=== PATIENT | female | born 1965 | race Caucasian/White ===

== ENCOUNTER 2020-08-18 11:54 | Outpatient (REF) | payer OTHER, SELFPAY | END 2020-08-18 11:55 | disposition home or self-care (01) | LOC: HO.SCI 11:54 | PROVIDERS: Visit Provider Internal Medicine | DX: Z13.89 Encounter for screening for other disorder (principal) ==

== ENCOUNTER 2020-08-20 14:44 | Outpatient (REF) | payer OTHER, SELFPAY ==
--- NOTE | ~2020-08-20 | MR_ITS ---
MRI OF THE BRAIN WITHOUT IV CONTRAST INDICATION: Gait disorder. COMPARISON: None available. TECHNIQUE: Multiplanar multisequence MR imaging of the brain was obtained without IV contrast. FINDINGS: There is no hydrocephalus, extra-axial surface collection, or herniation. No parenchymal signal abnormality. The major flow voids at the skull base are preserved. There is no acute infarct on diffusion-weighted imaging. There is no intracranial hemorrhage on the gradient recalled echo acquisition. The midline structures are normal. The cerebellar tonsils are normally positioned. The cerebellum and brainstem are normal. The craniocervical junction is normal. Osseous marrow signal intensity is homogenous. The visualized soft tissues are unremarkable. MR/MR head/brain wo con IMPRESSION: Unremarkable noncontrast MRI of the brain.
== END 2020-08-20 14:45 | disposition home or self-care (01) ==
LOC: HO.MRI 14:44
PROVIDERS: PCP Internal Medicine; Visit Provider Psychiatry & Neurology Neurology
DX: R26.89 Other abnormalities of gait and mobility (principal)
CPT/HCPCS: 70551

== ENCOUNTER 2021-12-30 13:33 | Outpatient (REF) | payer OTHER, SELFPAY ==
--- NOTE | ~2021-12-30 | MR_ITS ---
MR CERVICAL SPINE WITHOUT IV CONTRAST CLINICAL INFORMATION: Cervical spondylosis. COMPARISON: Cervical spine MRI 05/12/2020. TECHNIQUE: MRI of the cervical spine was obtained using routine sequences without contrast. FINDINGS: Mild anterior subluxation of C4 on C5. Leftward convex scoliotic curvature of the thoracic spine partially imaged. There is no bone marrow edema. There are no acute fractures. The craniocervical junction is unremarkable. The vertebral body heights are preserved. There is moderate disc volume loss at C5-C6 and mild disc volume loss at C6-C7. Partially imaged intracranial compartment is unremarkable. Cervical arterial flow voids are maintained. No significant extra spinal soft tissue findings. No definite cord signal changes accounting for artifact. C2-C3: Left-sided uncovertebral joint spurring and advanced facet arthropathy result in similar moderate left-sided bony foraminal stenosis. Disc osteophyte without central canal stenosis. Findings unchanged. C3-C4: Disc osteophyte and ligamentum flavum thickening mildly narrow the central canal. Advanced uncovertebral joint hypertrophy and hypertrophic facet arthropathy result in stable appearing moderate to severe bilateral foraminal stenosis. Findings unchanged. C4-C5: Disc osteophyte mildly narrows the central canal. Left-sided advanced uncovertebral joint hypertrophy and hypertrophic facet arthropathy result in severe left-sided foraminal stenosis. No central canal and no right foraminal stenosis. Findings unchanged. C5-C6: Disc osteophyte eccentric to the left side results in mild to moderate central canal stenosis and significant effacement of the left axillary recess is unchanged. Advanced uncovertebral joint hypertrophy and hypertrophic facet arthropathy result in stable severe bilateral foraminal stenosis. C6-C7: Uncovertebral joint spurring and advanced facet arthropathy result in severe bilateral foraminal stenosis. Findings are unchanged. C7-T1: Posterior disc contour is normal. No central canal stenosis and no foraminal stenosis. MR/MR cervical spine wo con IMPRESSION: Advanced multilevel cervical spondylosis. Advanced spondylitic changes result in stable varying degrees of moderate to severe foraminal stenosis throughout the cervical spine as described. At C5-C6, disc osteophyte eccentric to the left results in similar effacement of left axillary recess and mild to moderate central canal stenosis with mild flattening of the cervical cord.
== END 2021-12-30 13:34 | disposition home or self-care (01) ==
LOC: HO.MRI 13:33
PROVIDERS: Visit Provider Psychiatry & Neurology Neurology
DX: M47.812 Spondylosis without myelopathy or radiculopathy, cervical region (principal)
CPT/HCPCS: 72141

== ENCOUNTER 2024-03-20 12:15 | Outpatient (REF) | payer OTHER, SELFPAY ==
--- NOTE | ~2024-03-20 | XR_ITS ---
EXAMINATION: XR ANKLE 3 OR MORE VIEWS LEFT HISTORY: LEFT ANKLE PAIN COMPARISON: There are no prior studies available for comparison. FINDINGS: Three views of the left ankle are submitted. Osseous mineralization is normal. There is no acute fracture or dislocation. The joint spaces are preserved. Tiny densities adjacent to the tip of the medial malleolus may be the result of old trauma. XR/XR ankle LT min 3V IMPRESSION: No evidence of acute fracture of the left ankle. Electronically signed by: Sushil Catalan MD 03/21/2024 07:57 AM EST
--- OUTSIDE RECORDS SUMMARY | 2024-03-20 14:35 | XMS_ITS | Encounter Summary ---
Author Organization [facility] Address [id number] [place] [id number] Care Team Providers Care Director Of Individual Giving Name Role Phone Waylon Morataya MD Primary Care Provider [phone] Reason for Referral * Consultation (Routine) - Pending Review Specialty Diagnoses / Procedures Referred By Contlisa t Referred To Contact Nutrition Diagnoses Hyperlipidemia, unspecified hyperlipidemia type Waylon Morataya MD [address] [place] [id number] Referral ID Status Reason Start Date Expiration Date Visits Requested Visits Authorized [id number] Pending Review Specialty Services Required 03/06/2024 03/06/2025 1 1 Reason for Visit * Reason Onset Date Comments Results 03/05/2024 Encounter Details Date Type Department Care Team (Late st Contact Info) Description 03/05/2024 Telephone Internal Medicine - [address] [phone] Waylon Morataya MD [address] [place] [id number] Results Social History Tobacco Use Types Packs/Day Years Used Date Smoking Tobacco: Never Smokeless Tobacco: Never Alcohol Use Standard Drinks/Week Comments Yes 0 (1 standard drink = 0.6 oz pur e alcohol) Sex and Gender Information Value Date Recorded Sex Assigned at Not on file Gender Identity Not on file Sexual Orientation Not on file Job Start Date Occupation Industry Not on file Not on file Not on file documented as of this encounter Progress Notes * Katherine Sanchez MA - 03/07/2024 1:11 PM EST Message sent to patient. * Waylon Morataya MD - 03/06/2024 7:29 PM EST Referral to manager fashion placed. * Radha Conde MA - 03/06/2024 2:[address] Jo Ann Bello I spoke with Ms. Ventura patient is requesting a refer to manager fashion to help her with cholesterol diet . Please advise thanks [facility] * Kamaljit Monroy - 03/06/2024 1:12 PM EST Pt stated she would like a callback to verify means to follow a low -cholesterol diet. Message was given to pt stated by Dr. Cherry and she still has some unanswered questions . Please callback @ [phone]. Thx * Waylon Morataya MD - 03/05/2024 7:34 PM EST Please inform the patient that her fatty liver test came back reassuring. It showed no significant fatty liver or thickening of her liver. It did show that her cholesterol levels are elevated and sheneeds to follow low-cholesterol diet. * Katherine Diaz MA - 03/05/2024 2:10 PM EST Unsure how to interpret results. Please advise. * Ra Olson - 03/05/2024 12:51 PM EST Pt wants to speak to guy about her test results 02/27/24 about the liver and cholesterol. Tel #:[phone]. documented in this encounter Plan of Treatment Upcoming Encounters Date Type Department Care Team (Late st Contact Info) Description 03/26/2024 1:30 PM EST Consult General Surgery - [place] [address] [address] César Atkinson MD [address] [address] 07/25/2024 3:50 PM EDT Appointment Radiology Department [address] [phone] Scheduled Referrals Name Type Priority Associated Diagnoses Orde r Schedule Ambulatory referral to Nutrition Services Outpatient Referral Routine Hyperlipidemia, unspecified hyperlipidemia type 1 Occurrences starting 03/06/2024 until 03/06/2025 documented as of this encounter Visit Diagnoses Diagnosis Hyperlipidemia, unspecified hyperlipidemia type- Primary Encounter for screening mammogram for breast cancer documented in this encounter Care Teams Director Of Individual Giving Relationship Specialty Start Date End Date Waylon Morataya MD [address] [place] [id number] PCP - General Internal Medicine 01/23/19 documented as of this encounter
--- OUTSIDE RECORDS SUMMARY | 2024-03-20 14:35 | XMS_ITS | Clinical Summary ---
Author Organization 175 [facility] Address [address] [place] [address] Phone Care Team Providers Care Ems Instructor Name Role Phone Waylon Morataya MD Primary Care Provider [phone] Allergies No known active allergies Medications Medication Sig Dispensed Refills Start Date End Date Status omeprazole (PriLOSEC) [address] capsule Take 1 capsule (40 mg total) by mouth 1 (one) time each day. 08/29/2023 Active clotrimazole (MYCELEX) 10 mg vito Take 1 Vito by mouth 5 times daily for 14 days. Allow vito to remain in mouth and dissolve slowly on the tongue. 08/02/2023 Active DULoxetine (Drizalma Sprinkle) 20 mg capsule, delayed rel sprinkle Take 20 mg by mouth 2 times daily. Active gabapentin (NEURONTIN) 300 mg capsule Take 1 capsule (300 mg total) by mouth 1 (one) time each day. 05/18/2023 Active cyclobenzaprine (FLEXERIL) 5 mg tablet Take 1 tablet (5 mg total) by mouth 3 (three) times a day if needed. 04/26/2023 Active reservoir inhalation (INSPIREASE) device 1 Each by Does not apply route as needed for Other (To use with inhalers). 06/22/2022 Active albuterol HFA (PROAIR HFA ; PROVENTIL HFA ; VENTOLIN HFA) 90 mcg/actuation inhaler Inhale 2 Puffs into the lungs every 4 hours as needed for Cough or Wheezing. 06/22/2022 Active FLUoxetine (PROzac) 20 mg capsule 2 capsules daily. 03/10/2020 Active QUEtiapine (SEROquel) 25 mg tablet 1 tablet BID 03/10/2020 Active clonazePAM (KlonoPIN) 0.5 mg tablet Take 1 Tab by mouth 2 times daily. 03/10/2020 Active multivit-min/iron/ folic acid/K (ADULTS MULTIVITAMIN ORAL) Take 1 Tab by mouth daily. Active ondansetron (ZOFRAN) 4 mg tablet Take 1 tablet (4 mg total) by mouth every 8 (eight) hours if needed for nausea or vomiting. 20 tablet 1 01/16/2024 Active pravastatin (PRAVACHOL) 40 mg tablet TAKE 1 TABLET BY MOUTH EVERY DAY 90 tablet 02/22/2024 Active senna 8.6 mg tablet TAKE 1 TABLET BY MOUTH EVERY DAY 90 tablet 02/28/2024 Active senna (SENOKOT) 8.6 mg tablet Take 1 tablet (8.6 mg total) by mouth 1 (one) time each day. 08/29/2023 5 Discontinued pravastatin (PRAVACHOL) 40 mg tablet Take 1 tablet (40 mg total) by mouth 1 (one) time each day. 08/28/2023 5 Discontinued Active Problems Problem Noted Date Diagnosed Date Cervical spondylosis with radiculopathy 02/19/20 22 Overview (11/27/2023): Last Assessment & Plan: Ms. Ventura has seen some improvements since her last visit here, particularly that her voice is getting better and a new technique employed at physical therapy is helping with the tightness at the back of her neck and shoulders. Unfortunately, she continues to describe neck pain with pain and tingling to her hands with this feeling of waiting for everything to wake up but it is not . She is frustrated and upset with herself that maybe she waited too long to have surgery. We discussed that it has been less than 4 months since her surgery and improvements particularly in paresthesias can take up to a year. She continues to drop things out of her left hand and has profound headaches as she has stayed off of NSAIDs since the fusion. He had a follow-up visit with Dr. Robles last week and is scheduled for an EMG/NCV a week from today. On exam, her voice is of normal volume, her incision is well-healed, cervical rotation is 45 degrees bilaterally, strength is 5/5, gait is steady, there were no myelopathic findings. I agree that she can resume taking ibuprofen 800 mg for her headaches and that she should continue with physical therapy. We will await the results of her EMG/NCV and if necessary, we can order repeat cervical spine MRI based on those results. Allergic rhinitis 10/30/2017 Asthma 08/02/2017 Bunion 08/02/2017 Depression with anxiety 08/02/2017 GERD (gastroesophageal reflux disease) 8 Hyperlipidemia 08/02/2017 Bleeding external hemorrhoids 06/06/2017 Frequent headaches 01/24/2017 Vertigo 01/24/2017 Eczema 08/01/2016 IBS (irritable bowel syndrome) 07/22/2015 Encounters Date Type Department Care Team Description 03/12/2024 Telephone [facility] [address] [place] [id number] [facility] (Patient referred by Adyen for [facility]) 03/05/2024 Telephone Internal Medicine - [address] [phone] Waylon Morataya MD Results 01/16/2024 4:30 PM EST Telemedicine Internal Medicine - [address] [phone] Waylon Morataya MD Fatty liver (Primary Dx); Chronic LUQ pain 01/05/2024 12:30 PM EST Office Visit Gastroenterology - [facility] [address] [facility] [address] [place] [phone] Honey Hart MD LUQ pain (Primary Dx) 12/25/2023 10:32 AM EST - 12/25/2023 11:59 PM EST Hospital Encounter Radiology Department - [address] [phone] Hepatomegaly, not elsewhere classified Discharge Disposition: Home or Self Care from Last 3 Months Immunizations Name Administration Dates Next Due Influenza Quadravalent, MDCK , 0.5ml, preservative free (Flucelvax) 6mo and older 11/19/2019 Influenza trivalent, with pr eservative (Fluzone; Afluria) 6mo and older 11/26/2018 Influenza, Unspecified 12/01/2020 Moderna SARS-CoV-2 COVID-19, mRNA, LNP-S, preservative free 01/29/2021,06/28/2020 Pneumococcal polysaccharide 23 valent (Pneumovax 23) 2yo and older 01/28/2016 Td Tetanus diptheria (Tdvax) 7yo and older 10/06 Zoster recombinant (Shingrix) 19yo and older ,02/28/2018 Surgical History Surgery Date Site/Laterality Comments APPENDECTOMY PROCEDURE: HISTORICAL APPENDECTOMY TONSILLECTOMY PROCEDURE: HISTORICAL TONSILLECTOMY OTHER SURGICAL HISTORY PROCEDURE: HISTORY OTHER; COMMENT: hernia repair inguinal left OTHER SURGICAL HISTORY PROCEDURE: ---- OTHER ----; COMMENT: Laproscopic surgery APPENDECTOMY PROCEDURE: [place] APPENDECTOMY COLONOSCOPY PROCEDURE: HISTORICAL COLONOSCOPY CERVICAL BIOPSY W/ LOOP ELECTRODE EXCISION PROCEDURE: [place] CONIZATION CERVIX W/WO D&C RPR ELTRD EXC; COMMENT: Cryosurgery at age 36 NECK SURGERY 11/10/2022 PROCEDURE: HISTORICAL NECK SURGERY; COMMENT: C5-6, C6-7 ACDF with plating, Dr. Wray Medical History Medical History Date Comments Allergic rhinitis 10/30/2017 DX:Allergic rh initis Asthma 08/02/2017 DX:Asthma Depression with anxiety 08/02/2017 DX:Depre ssion with anxiety Bunion 08/02/2017 DX:Bunion Eczema 08/01/2016 DX:Eczema GERD (gastroesophageal reflux disease) 8 DX:GERD (gastroesophageal reflux disease) Hyperlipidemia 08/02/2017 DX:Hyperlipidemi a IBS (irritable bowel syndrome) 07/22/2015 D X:IBS (irritable bowel syndrome) Frequent headaches 01/24/2017 DX:Frequent h eadaches Vertigo 01/24/2017 DX:Vertigo Bleeding external hemorrhoids 06/06/2017 DX :Bleeding external hemorrhoids History of endometriosis 03/07/2019 DX:Hist ory of endometriosis Family History Medical History Relation Name Comments Ovarian cancer Aunt Other: hydrocephalus Brother 1 No Known Problems Brother 2 Other cancer Father skin Coronary artery disease Maternal Grandfather Coronary artery disease Maternal Grandmother Diabetes Mother cad Esophageal cancer Paternal Grandfather No Known Problems Sister Relation Name Status Comments Aunt Alive Brother 1 Alive Brother 2 Alive Father Alive Maternal Grandfather Maternal Grandmother Mother Alive Paternal Grandfather Paternal Grandmother Sister Alive Social History Tobacco Use Types Packs/Day Years Used Date Smoking Tobacco: Never Smokeless Tobacco: Never Alcohol Use Standard Drinks/Week Comments Yes 0 (1 standard drink = 0.6 oz pur e alcohol) Housing Instability Answer Date Recorde d Are you worried that in the next 2 months you may not have stable housing? No 03/12/2024 Food Access & Nutrition Answer Date Rec orded Do you have access to a vari ety of food including fruits and vegetables? Yes 03/12/2024 Access to Healthcare Answer Date Record ed Within the last 3 months, ho w many times did you visit the emergency department for your medical care? 0 03/12/2024 Health Literacy Answer Date Recorded How often do you need to hav e someone help you when you read instructions, pamphlets, or other written material from your doctor or pharmacy? Never 03/12/2024 Caregiver: How often do you need to have someone help you when you read instructions, pamphlets, or other written material from your doctor or pharmacy? Not on file 03/12/2024 Financial Risk Answer Date Recorded How hard is it for you to pa y for the very basics like food, housing, medical care, and air conditioning / heating? Very hard 03/12/2024 Transportation Answer Date Recorded Has the lack of transportati on kept you from meetings, work, or from getting things needed for daily living? No Has the lack of transportati on kept you from medical appointments or from getting medications? No 03/12/2024 Social Isolation Answer Date Recorded How often do you feel lonely or isolated from those around you? Sometimes 03/12/2024 Food Risk Answer Date Recorded Within the past 12 months we worried whether our food would run out before we got money to buy more. Sometimes true 025 Within the past 12 months th e food we bought just didn't last and we didn't have money to get more. Sometimes true 03/12/2024 Dependent Care Answer Date Recorded Do you need help finding or paying for care for your loved ones. For example, children's tutor nursery or elderly care for an older adult? No 03/12/2024 Education Answer Date Recorded Do you think completing more education or training, like finishing a GED, going to college, or learning a trade, would be helpful for you? No 03/12/2024 Employment and Income Answer Date Recor ded During the last four weeks, have you been actively looking for work? No 03/12/2024 Living Situation Answer Date Recorded What is your living situation? 0 03/12/2024 Sex and Gender Information Value Date Recorded Sex Assigned at Not on file Gender Identity Not on file Sexual Orientation Not on file Job Start Date Occupation Industry Not on file Not on file Not on file Obstetrics History Last Filed Vital Signs Vital Sign Reading Time Taken Comments Blood Pressure 115/80 01/05/2024 12:46 PM EST Pulse 89 01/05/2024 12:46 PM EST Temperature - - Respiratory Rate - - Oxygen Saturation 98% 01/05/2024 12:46 PM EST Inhaled Oxygen Concentration - - Weight 75.8 kg (167 lb) 01/05/2024 12:46 PM EST Height 162.6 cm (5' 4 ) 01/05/2024 12:46 PM EST Body Mass Index 28.67 01/05/2024 12:46 PM EST Plan of Treatment Upcoming Encounters Date Type Department Care Team (Late st Contact Info) Description 03/26/2024 1:30 PM EST Consult General Surgery - [facility] [address] [phone] César Atkinson MD [address] [phone] 07/25/2024 3:50 PM EDT Appointment Radiology Department - [address] [phone] Health Maintenance Due Date Last Done Comments Pneumococcal Vaccine: Pediatrics (0 to 5 Years) and At-Risk Patients (6 to 64 Years) (2 of 2 - PCV) 01/27/2017 01/28/2016 HIV Screening 01/29/2022 COVID-19 Vaccine ( season) 2023 09/12/2021, 01/29/2021, 06/28/2020, Additional history exists RSV Immunization Patients 60+ Years Old (1 - Risk 60-74 years 1-dose series) 2023 Depression Screening 08/27/2024 08/28/2023 Social Influencers of Health Screening 03/12/2025 03/12/2024 Breast Cancer Screening 07/11/2025 07/12/19 24, 07/12/2023, 07/07/2022 Cervical Cancer Screening: HPV 01/18/2027 01/18/2022 Cholesterol Screening (Lipid Panel) 11/08/2028 11/09/2023, 11/09/2023, 08/28/2023 DTaP,Tdap,and Td Vaccines (2 - Td or Tdap) 10/06/2032 10/06/2022 Colorectal Cancer Screening: Colonoscopy 10/27/2032 10/27/2022 Zoster Vaccines Completed 08/19/2018, 02/28/2018 Hepatitis C Screening Completed 03/09/2019 Influenza Vaccine Completed 01/02/2024, , 12/03/2021, Additional history exists HIB Vaccines Aged Out No longer eligi ble based on patient's age to complete this topic HPV Vaccines Aged Out No longer eligi ble based on patient's age to complete this topic Hepatitis A Vaccines Aged Out No long er eligible based on patient's age to complete this topic Hepatitis B Vaccines Aged Out No long er eligible based on patient's age to complete this topic IPV Vaccines Aged Out No longer eligi ble based on patient's age to complete this topic MMR Vaccines Aged Out No longer eligi ble based on patient's age to complete this topic Meningococcal ACWY Vaccine Aged Out N o longer eligible based on patient's age to complete this topic RSV Immunization Patients Under 20 months Aged Out No longer eligible based on patient's age to complete this topic Varicella Vaccines Aged Out No longer eligible based on patient's age to complete this topic Procedures Procedure Name Priority Date/Time Associated Diagnosis Comments SPARROW FIBROSURE Routine 02/27/2024 2:24 PM EST Fatty liver MR ABDOMEN WO AND W CONTRAST Routine 12/25/2023 12:11 PM EST Hepatomegaly, not elsewhere classified SONO ABDOMEN COMPLETE Routine 12/21/2023 8:21 AM EDT Constipation, unspecified CT ABD \T\ PELVIS W/CONTRAST Routine 12/19/2023 3:01 PM EDT Constipation, unspecified LIPID PANEL Routine 11/09/2023 DEPRESSION SCREENING Routine 08/28/2023 SCREENING MAMMOGRAPHY BI 2-VIEW BREAST INC CAD Routine 07/12/2023 5:13 PM EDT Encounter for screening mammogram for malignant neoplasm of breast COLONOSCOPY Routine 10/27/2022 HPV Routine 01/18/2022 HEPATITIS C SCREENING Routine 03/09/2019 from Last 3 Months or Most Recently Relevant to Health Maintenance Results * SPARROW fibrotest liver diease (02/27/2024 2:24 PM EST) SPARROW FibroSure See Below 03/05/2024 9:34 AM EST [facility] Comment: SPARROW FibroSure(R) Plus SEE REPORT UNDER SEPARATE COVER. REPORT WILL BE SENT TO THE ORDERING LABORATORY VIA PRINTER OR FAX. ADDITIONAL COPIES OF THE ORIGINAL REPORT MAY ALSO BE OBTAINED BY CALLING [facility] at [phone] Blood Venous blood specimen / Unknown Venipuncture / Unknown 02/27/2024 2:24 PM EST 02/27/2024 2:24 PM EST Waylon Morataya MD LAB BLOOD [facility] [address] [place] [address] * MR Abdomen wo and w Contrast (12/25/2023 12:11 PM EST) Anatomical Region Laterality Modality Body Magnetic Resonan ce 12/25/2023 5:57 PM EST Impressions 12/25/2023 6:23 PM EST 1. ??No acute findings. 2. ??Findings of hepatic steatosis. ??Area in the left hepatic lobe with signal characteristics suggestive of less fatty infiltration than in the remainder liver parenchyma appears to correlate with the ultrasound finding. ??No suspicious hepatic lesions seen. -------- FINAL REPORT -------- Dictated By: Eb Nevarez Dictated Date: 12/25/2023 17:57 ET Assigned Physician: Eb Nevarez Reviewed and Electronically Signed By: Eb Nevarez Signed Date: 12/25/2023 18:23 ET Workstation ID: [id number] Transcribed By: Self Edit Transcribed Date: 12/25/2023 17:57 ET Narrative 12/25/2023 6:23 PM EST MRI of abdomen without and with intravenous contrast TECHNIQUE: Multisequence MRI of the abdomen was obtained prior to and following intravenous administration of 15 cc of contrast gadolinium Dotarem. ??2-D and 3- D MRCP sequences were also obtained. Comparison: Ultrasound of the abdomen in on December 21, 2023 describes a 4.8 x 2.3 x 2.6 cm hypoechoic mass of the left lobe of the liver versus focal fat sparing. ??CT of abdomen/pelvis on December 19, 2023. History: Left upper quadrant abdominal pain. FINDINGS: Motion artifacts degrades many sequences. Lower Chest: No pleural effusions. Liver: Signal loss on [id number] phase sequence consistent with fatty liver, with a geographic area of relatively less signal loss in the central aspect of the segment II/III that measures about 4.1 cm long (701:20), which likely correlates with the location seen on the recent ultrasound study. ??Nonenhancing T2 hyperintense small hepatic cysts. ??No arterially enhancing suspicious hepatic lesions seen. Biliary: Normal gallbladder. ??No biliary ductal dilatation. Spleen: No splenomegaly or focal lesion. Pancreas: No focal lesion. ??No ductal dilatation. ??No evidence of pancreas divisum. Adrenal Glands: No nodules Kidneys/Ureters: No solid-appearing focal renal lesions or hydronephrosis. ??Tiny upper pole right renal cyst. Bowel: No bowel distention. Peritoneum/Retroperitoneum: No free fluid. Lymph Nodes: No lymphadenopathy. Vessels: No abdominal aortic aneurysm. Bones/Soft Tissues: Unremarkable. Procedure Note Eb Nevarez MD - 12/25/2023 MRI of abdomen without and with intravenous contrast TECHNIQUE: Multisequence MRI of the abdomen was obtained prior to andfollowing intravenous administration of 15 cc of contrast gadoliniumDotarem. 2-D and 3-D MRCP sequences were also obtained. Comparison: Ultrasound of the abdomen in on December 21, 2023 describes a4.8 x 2.3 x 2.6 cm hypoechoic mass of the left lobe of the liver versusfocal fat sparing. CT of abdomen/pelvis on December 19, 2023. History: Left upper quadrant abdominal pain. FINDINGS: Motion artifacts degrades many sequences. Lower Chest: No pleural effusions. Liver: Signal loss on [id number]-[id number] phase sequence consistent with fattyliver, with a geographic area of relatively less signal loss in thecentral aspect of the segment II/III that measures about 4.1 cm long(701:20), which likely correlates with the location seen on the recentultrasound study. Nonenhancing T2 hyperintense small hepatic cysts. Noarterially enhancing suspicious hepatic lesions seen. Biliary: Normal gallbladder. No biliary ductal dilatation. Spleen: No splenomegaly or focal lesion. Pancreas: No focal lesion. No ductal dilatation. No evidence of pancreasdivisum. Adrenal Glands: No nodules Kidneys/Ureters: No solid-appearing focal renal lesions or hydronephrosis.Tiny upper pole right renal cyst. Bowel: No bowel distention. Peritoneum/Retroperitoneum: No free fluid. Lymph Nodes: No lymphadenopathy. Vessels: No abdominal aortic aneurysm. Bones/Soft Tissues: Unremarkable. IMPRESSION: 1. No acute findings. 2. Findings of hepatic steatosis. Area in the left hepatic lobe withsignal characteristics suggestive of less fatty infiltration than in theremainder liver parenchyma appears to correlate with the ultrasoundfinding. No suspicious hepatic lesions seen. -------- FINAL REPORT -------- Dictated By: Eb Nevarez Dictated Date: 12/25/2023 17:57 ET Assigned Physician: Eb Nevarez Reviewed and Electronically Signed By: Eb Nevarez Signed Date: 12/25/2023 18:23 ET Workstation ID: [id number] Transcribed By: Self Edit Transcribed Date: 12/25/2023 17:57 ET Waylon Morataya MD IMG MRI PROCEDURE S * SONO ABDOMEN COMPLETE (12/21/2023 8:21 AM EDT) Anatomical Region Laterality Modality Radiographic Maricruz ging 12/13/2023 1:15 PM EDT Narrative 12/21/2023 9:14 AM EDT ABDOMINAL ULTRASOUND History: ??Constipation. Comparison: CT abdomen pelvis 12/19/2023. FINDINGS: There is a 0.2 x 0.3 x 0.2 cm gallbladder polyp. ??There is no evidence of cholelithiasis. The common bile duct is not dilated, measuring 3 mm. ??The gallbladder wall is not thickened. No pericholecystic fluid is seen. No ascites are seen. The visualized pancreas is normal in size and demonstrates normal echotexture. The liver measures 13.1 cm in length and demonstrates increased echotexture. There is a 4.8 x 2.3 x 2.6 cm hypoechoic mass of the left lobe of the liver. ??Alternatively, this could represent focal fatty sparing. There is no evidence of intrahepatic ductal dilation. Normal hepatopedal flow is seen in the main portal vein. No evidence of hydronephrosis, mass, or calculus was seen in either kidney. ??The right kidney measures 10.4 cm in greatest length. ??The left kidney measures 11.4 cm in length. The spleen measures 9.2 ??cm in length. The visualized abdominal aorta and IVC are unremarkable. IMPRESSION: IMPRESSION: 4.8 x 2.3 x 2.6 cm hypoechoic mass of the left lobe of the liver versus focal fatty sparing. ?? MRI is suggested for further evaluation. Gallbladder polyp. Hepatic steatosis. Procedure Note Bianca Colin MD - 12/23/2023 ABDOMINAL ULTRASOUND History: Constipation. Comparison: CT abdomen pelvis 12/19/2023. FINDINGS: There is a 0.2 x 0.3 x 0.2 cm gallbladder polyp. There is noevidence of cholelithiasis. The common bile duct is not dilated, measuring 3 mm. Thegallbladder wall is not thickened. No pericholecystic fluid is seen. No ascites are seen. The visualized pancreas is normal in size and demonstrates normalechotexture. The liver measures 13.1 cm in length and demonstrates increasedechotexture. There is a 4.8 x 2.3 x 2.6 cm hypoechoic mass of the left lobe of theliver. Alternatively, this could represent focal fatty sparing. There is no evidence of intrahepatic ductal dilation. Normal hepatopedalflow is seen in the main portal vein. No evidence of hydronephrosis, mass, or calculus was seen in eitherkidney. The right kidney measures 10.4 cm in greatest length. The left kidney measures 11.4 cm inlength. The spleen measures 9.2 cm in length. The visualized abdominal aorta and IVC are unremarkable. IMPRESSION: IMPRESSION: 4.8 x 2.3 x 2.6 cm hypoechoic mass of the left lobe of the liver versusfocal fatty sparing. MRI is suggested for further evaluation. Gallbladder polyp. Hepatic steatosis. Waylon Morataya MD IMG XR PROCEDURES * CT ABD \T\ PELVIS W/CONTRAST (12/19/2023 3:01 PM EDT) Anatomical Region Laterality Modality Computed Tomogra phy 12/14/2023 12:2 8 PM EDT Narrative 12/19/2023 4:[address] ABD & PELVIS W/CONTRAST TECHNIQUE: Multidetector-row CT of the abdomen and pelvis was performed after administration of intravenous contrast (90 cc of Isovue-370) using tailored dose modulation techniques. Images were reconstructed in the axial, coronal, and sagittal planes. COMPARISON: CT of the abdomen on April 29, 2022. HISTORY: Constipation. FINDINGS: Lower Chest: Lung bases are clear. ??No pleural effusions. Liver: Unchanged small hypodense hepatic lesions. Biliary: Normal gallbladder. ??No biliary ductal dilatation. Spleen: No splenomegaly. ??No focal lesions. ? Pancreas: No focal lesions. ??No ductal dilatation. Adrenal Glands: No nodules. Kidneys/Ureters: Unchanged small probable cyst in the upper pole of the right kidney. ??No hydronephrosis. Bowel: Orally administered contrast has reached the transverse colon. ??No bowel distention. ?? Moderate stool load within the colonic loops and rectum. Peritoneum/Retroperitoneum: No free fluid or free air. Lymph Nodes: No lymphadenopathy. Pelvic Organs/Bladder: Unremarkable appearance of the underdistended urinary bladder. ?? Normal-appearing uterus. Vessels: No abdominal aortic aneurysm. Bones/Soft Tissues: No destructive bone lesions. ??Unremarkable overlying soft tissues. IMPRESSION: IMPRESSION: 1. ??No acute findings in the abdomen/pelvis. ?? 2. ??Moderate stool load within the colonic loops and rectum. Not Vldtd Procedure Note Eb Nevarez MD - 12/23/2023 CT ABD & PELVIS W/CONTRAST TECHNIQUE: Multidetector-row CT of the abdomen and pelvis was performedafter administration of intravenous contrast (90 cc of Isovue-370) using tailored dose modulationtechniques. Images were reconstructed in the axial, coronal, and sagittal planes. COMPARISON: CT of the abdomen on April 29, 2022. HISTORY: Constipation. FINDINGS: Lower Chest: Lung bases are clear. No pleural effusions. Liver: Unchanged small hypodense hepatic lesions. Biliary: Normal gallbladder. No biliary ductal dilatation. Spleen: No splenomegaly. No focal lesions. Pancreas: No focal lesions. No ductal dilatation. Adrenal Glands: No nodules. Kidneys/Ureters: Unchanged small probable cyst in the upper pole of theright kidney. No hydronephrosis. Bowel: Orally administered contrast has reached the transverse colon. Nobowel distention. Moderate stool load within the colonic loops and rectum. Peritoneum/Retroperitoneum: No free fluid or free air. Lymph Nodes: No lymphadenopathy. Pelvic Organs/Bladder: Unremarkable appearance of the underdistendedurinary bladder. Normal-appearing uterus. Vessels: No abdominal aortic aneurysm. Bones/Soft Tissues: No destructive bone lesions. Unremarkable overlyingsoft tissues. IMPRESSION: IMPRESSION: 1. No acute findings in the abdomen/pelvis. 2. Moderate stool load within the colonic loops and rectum. Not Vldtd Waylon Morataya MD [facility] [place] PROCEDURES * (ABNORMAL) Lipid panel (11/09/2023) LDL/HDL Ratio 3 0 - 4 Triglycerides 182(A) 0 - 150 mg/dL Cholesterol 215(A) 0 - 200 mg/dL HDL 79 40 mg/dL LDL Cholesterol 100 0 - 100 mg/dL Blood Venous blood specimen / Unknown Historical Provider LAB BLOOD ORDERAB LES * Depression Screening (08/28/2023) Depression Screening abstracted Historical Provider [facility] MAINTENANC E * SCREENING MAMMOGRAPHY BI 2-VIEW BREAST INC CAD (07/12/2023 5:13 PM EDT) Anatomical Region Laterality Modality Radiographic Maricruz ging 07/07/2022 6:37 PM EDT Narrative 07/13/2023 11:55 AM EDT This is a summary report. The complete report is available in the patient's medical record. If you cannot access the medical record, please contact the sending organization for a detailed fax or copy. Study: SCREENING MAMMOGRAPHY BI 2-VIEW BREAST INC CAD Technique: Bilateral full-field digital screening mammography is obtained and read in conjunction with computer aided detection. ??Tomosynthesis as well as 2D C-View imaging were obtained. Comparison: July 07, 2022 and August 07, 2017 Breast composition: The breast tissue is heterogeneously dense, which may obscure small masses. Bilateral breasts: No significant masses, suspicious calcifications or other abnormalities are seen in either breast. IMPRESSION: Impression: Bilateral breasts: Negative, no specific mammographic evidence of malignancy. ??Normal interval follow-up is recommended in 12 months. BI-RADS: Category 1: Negative Procedure Note Eb Nevarez MD - 10/09/2023 This is a summary report. The complete report is available in thepatient's medical record. If you cannot access the medical record, pleasecontact the sending organization for a detailed fax or copy. Study: SCREENING MAMMOGRAPHY BI 2-VIEW BREAST INC CAD Technique: Bilateral full-field digital screening mammography is obtainedand read in conjunction with computer aided detection. Tomosynthesis aswell as 2D C-View imaging were obtained. Comparison: July 07, 2022 and August 07, 2017 Breast composition: The breast tissue is heterogeneously dense, which mayobscure small masses. Bilateral breasts: No significant masses, suspicious calcifications orother abnormalities are seen in either breast. IMPRESSION: Impression: Bilateral breasts: Negative, no specific mammographic evidence ofmalignancy. Normal interval follow-up is recommended in 12 months. BI-RADS: Category 1: Negative Waylon Morataya MD IMG XR PROCEDURES * Colonoscopy (10/27/2022) Colonoscopy no interpretation , abstracted Anatomical Region Laterality Modality Other Historical Provider [facility] * Cervical Cancer Screening: HPV (01/18/2022) Pathologist [facility] Cervical Cancer Screening: HPV negative, abstracted Historical Provider [facility] * Hepatitis C Screening (03/09/2019) Pathologist [facility] Hepatitis C Screening abstracted Historical Provider [facility] E from Last 3 Months or Most Recently Relevant to Health Maintenance Care Teams Ems Instructor Relationship Specialty Start Date End Date Waylon Morataya MD [address] [place] [id number] PCP - General Internal Medicine 01/23/19
--- OUTSIDE RECORDS SUMMARY | 2024-03-20 14:35 | XMS_ITS ---
Author Organization [facility] Address [address] [place] [address] Phone Care Team Providers Care Central Supply Technician Supervisor Name Role Phone Waylon Morataya MD Primary Care Provider [phone] [facility] - Food Insecurity Status:Ongoing (Active) Start date:03/12/2024 Enrollment date:03/12/2024 Enrollment reason:Identified as high-risk Related social determinants of health:Food Risk Related program episode:Community Health Worker Program (Active) Overview Community Health Worker Program - Food Insecurity Service Episode Case Team Name Relationship Phone Ellis Mcintyre Community Health Worker(Respons ible Staff) Continued Care and Services Coordination
--- OUTSIDE RECORDS SUMMARY | 2024-03-20 14:35 | XMS_ITS ---
Author Organization 175 [facility] Address [address] [place] [address] Phone Care Team Providers Care Mold Sander Name Role Phone Waylon Morataya MD Primary Care Provider [phone] Community Health Worker Program Status:Ongoing (Active) Start date:03/12/2024 Enrollment date:03/12/2024 Enrollment reason:Referred by community agency Current support & services provided:Adult Related service episodes:[facility] - Food Insecurity (Active) Overview Community Health Worker Program Case Team Name Relationship Phone Ellis Mcintyre Community Health Worker(Respons ible Staff) Continued Care and Services Coordination
--- OUTSIDE RECORDS SUMMARY | 2024-03-20 14:35 | XMS_ITS | Encounter Summary ---
Author Organization [facility] Address [address] [place] [address] Care Team Providers Care Drug Abuse Technician Name Role Phone Waylon Morataya MD Primary Care Provider [phone] Reason for Visit * Reason Onset Date Comments Food & Security 03/12/2024 Patient referred by [employer] for HRSN Assesment Encounter Details Date Type Department Care Team ([facility] st Contact Info) Description 03/12/2024 Telephone [facility] Worker [facility] [address] [place] [address] Ellis Mcintyre Food & Security (Patient referred by [employer] for HRSN Assesment) Social History Tobacco Use Types Packs/Day Years [...] care for your loved ones. For example, child watch attendant or elderly care for an older adult? [...] as of this encounter Progress Notes * Ellis Mcintyre - 03/12/2024 3:06 PM EST Outreached patient on 03/12/24 Thrive Screening: Complete Outcome: Positive: Patient states food insecurity, currently in a program with [employer] for housing support. Patient also needs help with heating bill. SIO[facility] Screening completed by CH[facility]. Patient has been referred to [employer] through HRSN Program. Patient also referred to [facility] [facility] for Energy Assistance Program. CHW encouraged patient to apply [facility] Assistance through D[facility]. Follow up plan: Will follow up in 2 weeks Sole Mcintyre Community Health Worker documented in this encounter Plan of Treatment Upcoming Encounters Date Type Department Care Team (Late st Contact Info) Description 03/26/2024 1:30 PM EST Consult General Surgery - [facility] [address] [place] [address] César Atkinson MD [address] [place] [address] 07/25/2024 3:50 PM EDT Appointment Radiology Department [address] [address] documented as of this encounter Visit Diagnoses Not on filedocumented in this encounter Care Teams Drug Abuse Technician Relationship Specialty Start Date End Date Waylon Morataya MD [address] [place] [id number] PCP - General Internal Medicine 01/23/19 documented as of this encounter
--- OUTSIDE RECORDS SUMMARY | 2024-03-20 14:35 | XMS_ITS | Clinical Summary ---
Author Organization [facility] Address [address] [place] [address] Care Team Providers Care Public Works Technician Name Role Phone Waylon Morataya MD Primary Care Provider [phone] Social History Tobacco Use Types Packs/Day Years Used Date Smoking Tobacco: Never Assessed Sex and Gender Information Value Date Recorded Sex Assigned at Not on file Gender Identity Not on file Sexual Orientation Not on file Job Start Date Occupation Industry Not on file Not on file Not on file Plan of Treatment Health Maintenance Due Date Last Done Comments Hepatitis C Screening 1965 COVID-19 Vaccine (#1) 06/07/1964 Depression Screening 1975 Preventative Health Evaluation 12/07/1981 DTap / Tdap / Td (1 - Tdap) 12/07/1982 Cervical Cancer Screening (P ap Smear) 12/07/1984 Colon Cancer Screening (Colonoscopy) 12/07/2008 Breast Cancer Screening (Mammogram) 12/07/2013 Shingrix-Zoster Vaccine (1 of 2) 12/07/2013 Influenza Vaccine (#1) 2023 RSV Adult > 60+ Yrs or Pregn ant (1 - 1-dose 75+ series) 12/07/2038 Hepatitis B Vaccines Aged Out No long er eligible based on patient's age to complete this topic Pneumococcal Vaccine Aged Out No long er eligible based on patient's age to complete this topic RSV Ped < 20 months Aged Out No longe r eligible based on patient's age to complete this topic Care Teams Public Works Technician Relationship Specialty Start Date End Date Waylon Morataya MD [address] [place] [address] PCP - General Internal Medicine 05/28/20
== END 2024-03-20 12:16 | disposition home or self-care (01) ==
LOC: HO.XRAY 12:15
PROVIDERS: PCP Internal Medicine; Visit Provider Psychiatry & Neurology Neurology
DX: M25.572 Pain in left ankle and joints of left foot (principal)
CPT/HCPCS: 73610

== ENCOUNTER → 2024-03-20 12:35 | Outpatient (BNV) | payer OTHER, SELFPAY | PROVIDERS: PCP Internal Medicine; Visit Provider Radiology Diagnostic Radiology | DX: M25.572 Pain in left ankle and joints of left foot (principal) | CPT/HCPCS: 73610 ==

== ENCOUNTER 2024-07-29 10:30 | Outpatient (AMB) | payer OTHER, SELFPAY ==
--- NOTE | 2024-07-29 10:43 | A.SPINEOV_ITS ---
Intake Visit Reasons: LBP Intake Note: Ms. Ventura is here today c/o low back pain. Gymnastics Coach Or Instructor Required: No Allergies No Known Allergies Allergy (Verified 01/16/24 10:23) Assessment & Plan Assessment & Plan (1) Back pain: Code(s): M54.9 - Dorsalgia, unspecified Category: Medical Plan Dear Dr Rocha, Thank you for referring Mrs Ventura to our office today. She is a very nice 58-year-old female who has history of ACDF C5-6 C6-[address] Flores at [facility] in 2022, presents today for evaluation of low back pain and bilateral intermittent tingling and pain down her legs going into her thighs and into her calves and feet. The symptoms have been going on for 1 year. It can be present with walking but it is most persistent at night when she is lying down. It is also there when she is sitting. She has been through conservative management in the form of injections at your office as well as therapy and medication trials including Tylenol, gabapentin, Motrin, duloxetine. She reports that the injections done at the office gave her a little bit of relief for a day or 2. She underwent an MRI showing degenerative disc disease at L5-S1 with foraminal narrowing. She was sent today for an evaluation. 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 Of note, she did have signs of suboptimal fusion seen on the x-ray and has had persistent numbness down her arms that never went away after surgery. Denies any history of coronary disease, she does have a mild asthma, but nothing significant in her lungs, kidneys, bleeding disorders, blood clots, cancer etc.. Social hx: She does not smoke, drink or use any recreational drugs Medications: Pravastatin, prn albuterol, Seroquel, Klonopin, Tylenol, gabapentin, duloxetine, meloxicam Allergies: None Physical exam: Awake alert oriented no acute distress, gait normal, strength and reflexes normal slightly brisk reflexes in the Achilles with clonus Imaging review: Lumbar MRI done at [facility] in June of 2024 shows some mild disc degeneration at L5-S1, there is foraminal narrowing right greater than left, no significant central canal narrowing. Although there is some narrowing on the left foramen there was no compression of the nerve. Impression: 58-year-old female presents for evaluation of low back pain and bilateral tingling and pain going down into her legs into her feet. The symptoms are present all throughout the day, they can be aggravated with activity but they are particularly bad at night when she is lying down. She has been through some conservative management. The patient reports that the injections you did gave her a little bit of relief for few days but the pain came right back. I sat down with her, went through her MRI with her at length and explained to her that there is some mild to moderate degeneration of L5-S1 but it is unclear if this is the source of her back pain. We talked about the difficulty with establishing degenerative disc disease as the source of back pain in light of the fact that these can be incidental finding seen on MRI. She does have some foraminal narrowing, but I do not see any compression on the left side in the foramen, and on the right side it as [id number]. I am not sure if surgery would help her situation. She has had a similar situation in her neck when she underwent anterior cervical fusion and the numbness and pain down her arms did not go away with that surgery despite adequate decompression. I am wondering if she does not have similar issues in the lower extremities as the upper extremities. Right now the pain is not at a point where it is crippling or disabling so I am not going to recommend she consider surgery. Typically Dr. Mathis would only offer this if the patient was an absolute agony, with severe functional limitations which she does not. I told her I would be happy to see her back down the road if something changes. Thank you for allowing us to care for your patient. The total time spent with this visit with this patient was 45 minutes reviewing history, physical exam, lumbar imaging review, and implementation of treatment plan or further diagnostic testing Juwan Mathis MD,PhD [facility] Coding Level of Care Code New Pt Level 4 (75589) Diagnoses Back pain M54.9
--- OUTSIDE RECORDS SUMMARY | 2024-07-29 11:48 | XMS_ITS | Clinical Summary ---
Author Organization [facility] Address [address] [place] [address] Care Team Providers Care Buffer Chrome Name Role Phone Waylon Morataya MD Primary Care Provider [phone] Social History Tobacco Use Types Packs/Day Years [...] Vaccine (1 of 2) 12/07/2013 Influenza Vaccine (Season Ended) 2024 RSV Adult > 60+ Yrs or Pregn [...] age to complete this topic Care Teams Buffer Chrome Relationship Specialty Start Date End Date Waylon Moraatya MD [address] [place] [address] PCP - General Internal Medicine 05/28/20
== END 2024-07-29 11:35 | disposition home or self-care (01) ==
LOC: HO.HNS 10:30
PROVIDERS: PCP Internal Medicine; Referring Provider Physical Medicine & Rehabilitation; Visit Provider Physician Assistant
DX: M54.9 Dorsalgia, unspecified (principal)
CPT/HCPCS: 99204

== ENCOUNTER → 2024-07-29 10:30 | Outpatient (BNVA) | payer OTHER, SELFPAY | PROVIDERS: PCP Internal Medicine; Referring Provider Physical Medicine & Rehabilitation; Visit Provider Physician Assistant | DX: M54.9 Dorsalgia, unspecified (principal) | CPT/HCPCS: 99202 ==

== ENCOUNTER 2024-08-22 11:11 | Outpatient (AMB) | payer OTHER, SELFPAY ==
--- NOTE | 2024-08-22 11:16 | MHC.OFFVIS ---
Intake Visit Reasons: 2 month fu Allergies No Known Allergies Allergy (Verified 01/16/24 10:23) HPI Comments Details: 58 yo woman, living alone and has no children, not working at this time, with non specific pain syndrome somewhat suggestive of fibromyalgia type syndrome. Overall presentation is also suggestive of somatization disorder. She was c/o numbness and tingling in her arms and legs. She had a fall the other day for no reason. She was emotional and said that she might cry as she did during her last visit. Stress level is depressed. [facility] Medical History (Updated 08/22/24 @ 11:24 by Danna Robles MD) Peroneal neuropathy Somatization disorder Paresthesia of skin Fibromyalgia Gait disorder Cervical spondylarthritis Migraine equivalent syndrome Migraine without aura Numbness and tingling Muscle spasm Arm pain IBS (irritable bowel syndrome) Eczema Vertigo Frequent headaches Hyperlipidemia GERD (gastroesophageal reflux disease) Bunion Depression with anxiety Asthma Allergic rhinitis Endometriosis Cervical spondylosis with radiculopathy Family History (Updated 08/21/24 @ 14:21 by Mindy Arroyo MA) Brother History of back surgery Brother History of brain shunt Social History (Updated 08/21/24 @ 14:20 by Mindy Arroyo MA) Alcohol intake: current Patient Tobacco Use Status: Never used Tobacco Review of Systems Const Details: Feeling depressed and stressed. Feeling sick of herself. She was seeing a psychiatrist. Physical Exam Neuro Other: Mental Status: Alert and oriented to person, place, and time. Normal attention. Normal spontaneous speech, fluency, and comprehension. No obvious issues with mood and memory. Affect is flat. Cranial Nerves: CN II: Visual dias full to confrontation, visual acuity intact. CN III, IV, : Pupils equal, round, reactive to light and accommodation. Extraocular movements are normal. CN V: Facial sensation is normal. CN VII: Facial movements symmetrical. CN VIII: Hearing intact to bedside conversation is normal. CN IX, X: Palate elevates symmetrically. CN XI: Shoulder shrug and head turn symmetrical. CN XII: Tongue midline without atrophy or fasciculations. Motor: Bulk and tone normal in all extremities. No significant muscle weakness in arms and legs. No drift. Reflexes: Deep tendon reflexes 2+ and symmetric. Plantar response down-going bilaterally. Coordination: [id number] and fxuc-vn-[id number] testing normal. No dysmetria. Gait and Station: No obvious gait abnormality. No ataxia or instability. Sensory: Intact to light touch, pinprick, and vibration. Romberg is negative. Extrapyramidal: Full facial expressions and blinking. No rigidity. Movements are appropriate with no tremor or abnormality. Speech: Normal; no dysarthria or tremor. Assessment & Plan Assessment & Plan (1) Fibromyalgia: Code(s): M79.7 - Fibromyalgia Category: Medical Plan Because of complex nature of her overall situation, and mild changes on previous MRI in 2020, repeat MRI of brain is recommended to rule out any possibility of demyelinating disease. Orders: Orders MR head/brain wo/w con Today M79.7 - Fibromyalgia Medications: New duloxetine 30 mg PO BID 180 caps 0RF 90 days cyclobenzaprine 10 mg PO BEDTIME 90 tabs 0RF 90 days Coding Level of Care Code Est Pt Level 4 (25884) Diagnoses Fibromyalgia M79.7
--- OUTSIDE RECORDS SUMMARY | 2024-08-22 12:01 | XMS_ITS | Clinical Summary ---
Author Organization [employer] Address [address] [facility] [place] [address] Care Team Providers Care Vmware Systems Administrator Name Role Phone Pcp, No Primary Care Provider [phone] Allergies No known active allergies Medications chlorhexidine (PERIDEX) 0.12 % solution RINSE WITH 15 ML AFTER BRUSHING YOUR TEETH TWICE DAILY (SPIT OUT, DO NOT SWALLOW) 12/23/2022 Active clonazePAM (KlonoPIN) 0.5 MG tablet TAKE 1 TABLET BY MOUTH TWICE DAILY NEEDED. 02/21/2023 Active cyclobenzaprine (FLEXERIL) 5 MG tablet 03/02/2023 Active dexAMETHasone (DECADRON) 4 MG tablet TAKE 1 TABLET BY MOUTH 4 TIMES DAILY WITH MEALS AND NIGHTLY FOR 16 DOSES. 12/15/2022 Active DULoxetine (CYMBALTA) 20 MG capsule TAKE 1 CAPSULE BY MOUTH TWICE A DAY FOR 30 DAYS 02/22/2023 Active FLUoxetine (PROzac) 20 MG capsule TAKE 3 CAPSULES BY MOUTH EVERY DAY 02/06/2023 Active gabapentin (NEURONTIN) 100 MG capsule TAKE 2 CAPSULES BY MOUTH AT BEDTIME 02/21/2023 Active omeprazole (PriLOSEC) 40 MG capsule TAKE 1 CAPSULE BY MOUTH EVERY DAY 01/17/2023 Active oxyCODONE (ROXICODONE) 5 MG immediate release tablet TAKE 1 TABLET BY MOUTH EVERY 4 TO 6 HOURS NEEDED FOR PAIN 12/01/2022 Active pravastatin (PRAVACHOL) 20 MG tablet TAKE 1 TABLET BY MOUTH EVERY DAY 01/11/2023 Active QUEtiapine (SEROquel) 25 MG tablet TAKE 1 TABLET BY MOUTH TWICE A DAY 12/20/2022 Active Social History Tobacco Use Types Packs/Day Years Used Date Smoking Tobacco: Never Smokeless Tobacco: Never Tobacco Cessation:Counseling Given: Not Answered Comments Unknown Sex and Gender Information Value Date Recorded Sex Assigned at Not on file Legal Sex Female 7:30 PM EDT Gender Identity Not on file Sexual Orientation Not on file Plan of Treatment Health Maintenance Due Date Last Done Comments Colorectal Cancer: COLONOSCO PY Screening every 10 yrs (or Modifier) 1965 Depression: Screening Annual ly using PHQ-2/9 in Adults 18 yrs or above (or HM Modifier)([facility]) 12/07/1981 Hepatitis C Virus Infection in Adolescents and Adults: Screening (or Modifier) ([facility]) 12/07/1981 SDOH Screening Reminder: Minnie benitez for all adults ([facility]) 12/07/1981 Tobacco Smoking Cessation: i n Adults excluding Women: Behavioral and Pharmacotherapy Interventions ([facility]) 12/07/1981 DTaP/Tdap/Td Vaccines ([facility]) (1 - Tdap) 12/07/1982 Cervical Cancer Screenin 1-65 yrs of age (or Modifier) 12/07/1984 Cervical Cancer Screening: P ap every 3 yrs pts age 21-65 12/07/1984 Cervical Cancer: Pap Screeni ng with Modifier timing ([facility]) 12/07/1984 Cervical Cancer: hrHPV alone or with cotesting Pap for Pts 30-65yrs screening every 5yrs ([facility]) 12/07/1984 Colorectal Cancer Screening 45 -75 Yrs (or HM Modifier ) 12/07/2008 Colorectal Cancer: FLEXIBLE SIGMOIDOSCOPY Screening every 5 yrs 12/07/2008 Colorectal Cancer: Fecal Imm unochemical Test (FIT) Annually [facility] 12/07/2008 Colorectal Cancer: High-sens itivity gFOBT Screening Annually [facility] 12/07/2008 Colorectal Cancer: Stool Col oguard Screening every 3 yrs 12/07/2008 Colorectal Cancer:CT Colonography Screening every 5 yr s 12/07/2008 Breast Cancer: Screening Minnie emmanuel age 50-74 yrs (or HM Modifier)([facility]) 12/07/2013 Pneumococcal Vaccination Scr eening: Patients 50+ yrs of age ([facility]) (1 of 1 - PCV) 12/07/2013 Zoster/Shingles Vaccine Seri es Screening: Adults aged 18+ yrs (or HM Modifiers)([facility]) (1 of 2) 12/07/2013 COVID-19 Vaccine Screening: Initial Series and Booster Status ([facility]) ( - 2023-25 season) 2023 Flu Vaccination: Yearly for ages 18mos through 64 years (or Modifier)([facility] ) 09/20/2024 RSV Vaccines (1 - 1-dose 75+ series) 12/07/2038 Medical Devices Not on file Insurance [employer] Care Teams Vmware Systems Administrator Relationship Specialty Start Date End Date Pcp, No PCP - General Family Medicine 03/03/23
--- OUTSIDE RECORDS SUMMARY | 2024-08-22 12:01 | XMS_ITS | Clinical Summary ---
Author Organization [facility] Address [address] [place] [address] Care Team Providers Care Apple Picker Name Role Phone Waylon Morataya MD Primary Care Provider [phone] Social History Tobacco Use Types Packs/Day Years [...] age to complete this topic Care Teams Apple Picker Relationship Specialty Start Date End Date Waylon Morataya MD [address] [place] [address] PCP - General Internal Medicine 05/28/20
== END 2024-08-22 11:35 | disposition home or self-care (01) ==
LOC: HO.HSM 11:12
PROVIDERS: PCP Internal Medicine; Visit Provider Psychiatry & Neurology Neurology
DX: M79.7 Fibromyalgia (principal)
CPT/HCPCS: 99214

== ENCOUNTER → 2024-08-22 11:11 | Outpatient (BNVA) | payer OTHER, SELFPAY | PROVIDERS: PCP Internal Medicine; Visit Provider Psychiatry & Neurology Neurology | DX: M79.7 Fibromyalgia (principal) | CPT/HCPCS: 99212 ==

== ENCOUNTER → 2024-09-09 10:45 | Outpatient (BNV) | payer OTHER, SELFPAY | PROVIDERS: PCP Internal Medicine; Visit Provider Radiology Diagnostic Radiology | DX: M79.7 Fibromyalgia (principal) | CPT/HCPCS: 70553 ==

== ENCOUNTER 2024-09-09 10:47 | Outpatient (REF) | payer OTHER, SELFPAY ==
--- NOTE | ~2024-09-09 | MR_ITS ---
EXAMINATION: MR BRAIN WITHOUT THEN WITH IV CONTRAST HISTORY: M79.7 - Fibromyalgia, NUMBNESS AND TINGLING ARMS AND LEGS, FALL TECHNIQUE: Sagittal T1, and axial T1, FLAIR, T2, gradient echo, and diffusion weighted MR images of the brain were obtained. Subsequently, axial, and coronal T1-weighted images were obtained after the administration of intravenous gadolinium. 7.5 mL Gadavist was administered. COMPARISON: Comparison is made with the prior examination dated 08/20/2020. FINDINGS: The pituitary is normal in size. The cerebellar tonsils are normally located. The brain parenchyma is unremarkable, demonstrating normal ramirez/white differentiation. No foci of abnormal signal intensity are identified. The ventricular system is normal in size and configuration. There is no mass effect or midline shift. No intra or extra-axial fluid collections are identified. There are no foci of restricted diffusion. There is no abnormal contrast enhancement. Normal vascular flow voids are noted in the basilar and carotid arteries. The visualized paranasal sinuses are clear. MR/MR head/brain wo/w con IMPRESSION: Unremarkable MRI of the brain without and with contrast. Electronically signed by: Sushil Catalan MD 09/09/2024 01:30 PM EDT
--- OUTSIDE RECORDS SUMMARY | 2024-09-09 11:57 | XMS_ITS | Clinical Summary ---
Author Organization [employer] Ovuline Lenda Address [address] [facility] [place] [address] Care Team Providers Care Skein Dyer Name Role Phone Pcp, No Primary Care Provider [phone] Allergies No known active allergies Medications chlorhexidine [...] Adults 18 yrs or above (or HM Modifier)([facility]) 12/07/1981 Hepatitis C Virus Infection in Adolescents and Adults: Screening (or Modifier) ([facility]) 12/07/1981 SDOH Screening Reminder: Minnie benitez for all adults ([facility]) 12/07/1981 Tobacco Smoking Cessation: i n Adults excluding Women: Behavioral and Pharmacotherapy Interventions ([facility]) 12/07/1981 DTaP/Tdap/Td Vaccines ([facility]) (1 - Tdap) 12/07/1982 Cervical Cancer Screenin 1-65 yrs of age (or Modifier) 12/07/1984 Cervical Cancer Screening: P ap every 3 yrs pts age 21-65 12/07/1984 Cervical Cancer: Pap Screeni ng with Modifier timing ([facility]) 12/07/1984 Cervical Cancer: hrHPV alone or with cotesting Pap for Pts 30-65yrs screening every 5yrs ([facility]) 12/07/1984 Colorectal Cancer Screening 45 -75 Yrs (or HM Modifier ) 12/07/2008 Colorectal Cancer: FLEXIBLE SIGMOIDOSCOPY Screening every 5 yrs 12/07/2008 Colorectal Cancer: Fecal Imm unochemical Test (FIT) Annually [facility] 12/07/2008 Colorectal Cancer: High-sens itivity gFOBT Screening Annually [facility] 12/07/2008 Colorectal Cancer: Stool Col oguard Screening every 3 yrs 12/07/2008 Colorectal Cancer:CT Colonography Screening every 5 yr s 12/07/2008 Breast Cancer: Screening Minnie emmanuel age 50-74 yrs (or HM Modifier)([facility]) 12/07/2013 Pneumococcal Vaccination Scr eening: Patients 50+ yrs of age ([facility]) (1 of 1 - PCV) 12/07/2013 Zoster/Shingles Vaccine Seri es Screening: Adults aged 18+ yrs (or HM Modifiers)([facility]) (1 of 2) 12/07/2013 COVID-19 Vaccine Screening: Initial Series and Booster Status ([facility]) ( - 2023-25 season) 2023 Flu Vaccination: Yearly for ages 18mos through 64 years (or Modifier)([facility] ) 09/20/2024 RSV Vaccines (1 - 1-dose 75+ series) 12/07/2038 Medical Devices Not on file Insurance [facility] [employer] Care Teams Skein Dyer Relationship Specialty Start Date End Date Pcp, No PCP - General Family Medicine 03/03/23
--- OUTSIDE RECORDS SUMMARY | 2024-09-09 11:57 | XMS_ITS | Encounter Summary ---
Author Organization [facility] Address [address] [place] [address] Care Team Providers Care Pre Wave Assembler Name Role Phone Waylon Morataya MD Primary Care Provider [phone] Reason for Visit * Reason Onset Date Comments Forms/questionnaires 08/26/2024 Encounter Details Date Type Department Care Team ([facility] st Contact Info) Description 08/26/2024 Telephone General Surgery - [place] [address] [place] [address] Shannon Wills MD [address] [place] [address] Forms/questionnaires Social History Tobacco Use Types Packs/Day Years Used Date Smoking Tobacco: Never Smokeless Tobacco: Never Alcohol Use Standard Drinks/Week Comments Not Currently 0 (1 standard drink = 0.6 oz [...] care for your loved ones. For example, director child or elderly care for an older adult? [...] What is your living situation? 0 03/12/2024 Comments No Sex and Gender Information Value Date Recorded Sex Assigned at Not on file Legal Sex Female 11:59 AM EST Gender Identity Not on file Sexual Orientation Not on file documented as of this encounter Progress Notes * Shannon Wills MD - 09/03/2024 3:03 PM EDT GI note reviewed. This has been addressed. * Vera Carlson - 08/26/2024 8:38 AM EDT Patient called and asked if Dr.Sarah Wills can send her the medication in tablet form instead of liquid. She said the pharmacist told her to umu us and asked for it in tablet form since she doesn't feel comfortable with the liquid. polyethylene glycol (GoLYTELY) documented in this encounter Plan of Treatment Upcoming Encounters Date Type Department Care Team (Late st Contact Info) Description 11/14/2024 11:15 AM EDT Office Visit Internal Medicine - [address] [address] Abhi Loza NP [address] [place] [id number] documented as of this encounter Visit Diagnoses Not on filedocumented in this encounter Care Teams Pre Wave Assembler Relationship Specialty Start Date End Date Waylon Morataya MD [address] [place] [phone] PCP - General Internal Medicine 01/23/19 documented as of this encounter
--- OUTSIDE RECORDS SUMMARY | 2024-09-09 11:57 | XMS_ITS | Clinical Summary ---
Author Organization [facility] Address [address] [place] [address] Care Team Providers Care Field Project Manager Name Role Phone Waylon Morataya MD Primary Care Provider [phone] Social History Tobacco Use Types Packs/Day Years [...] (1 of 2) 12/07/2013 Influenza Vaccine (#1) 2024 RSV Adult > 60+ Yrs or [...] age to complete this topic Care Teams Field Project Manager Relationship Specialty Start Date End Date Waylon Morataya MD [address] [place] [address] PCP - General Internal Medicine 05/28/20
== END 2024-09-09 10:48 | disposition home or self-care (01) ==
LOC: HO.MRI 10:47
PROVIDERS: PCP Internal Medicine; Visit Provider Psychiatry & Neurology Neurology
DX: M79.7 Fibromyalgia (principal)
CPT/HCPCS: 70553; A9585

== ENCOUNTER 2024-09-24 11:18 | Outpatient (AMB) | payer OTHER, SELFPAY ==
--- OUTSIDE RECORDS SUMMARY | 2024-09-23 12:53 | XMS_ITS | Encounter Summary ---
Author Organization [facility] Address [address] [place] [address] Care Team Providers Care Trader Name Role Phone Waylon Morataya MD Primary Care Provider [phone] Encounter Details Date Type Department Care Team (Latest Contact Info) Description 09/23/2024 12:53 PM EDT - 09/23/2024 11:59 PM EDT Hospital Encounter [facility] Xray [address] [place] [id number] Cervical spondylosis with radiculopathy Discharge Disposition: Home or Self Care Social History Tobacco Use Types Packs/Day Years [...] for your loved ones. For example, child welfare worker or elderly care for an older adult? [...] on file documented as of this encounter Medications at Time of Discharge Caltrate with Vitamin D3 600 mg-20 mcg (800 unit) tablet Take 1 tablet by mouth. 04/29/2024 clonazePAM (KlonoPIN) 0.5 mg tablet Take 1 Tab by mouth 2 times daily. 03/10/2020 cyclobenzaprine (FLEXERIL) 5 mg tablet Take 1 tablet (5 mg total) by mouth 3 (three) times a day if needed. 04/26/2023 DULoxetine (CYMBALTA) [address] capsule Take 1 capsule (30 mg total) by mouth 2 (two) times a day. 05/30/2024 FLUoxetine (PROzac) 20 mg capsule 2 capsules daily. 03/10/2020 gabapentin (NEURONTIN) 300 mg capsule Take 1 capsule (300 mg total) by mouth 1 (one) time each day. 05/18/2023 meloxicam (MOBIC) 15 mg tablet 06/14/2024 multivit-min/iron/ folic acid/K (ADULTS MULTIVITAMIN ORAL) Take 1 Tab by mouth daily. omeprazole (PriLOSEC) [address] capsule Take 1 capsule (40 mg total) by mouth 1 (one) time each day. 08/29/2023 QUEtiapine (SEROquel) 25 mg tablet 1 tablet BID 03/10/2020 reservoir inhalation (INSPIREASE) device 1 Each by Does not apply route as needed for Other (To use with inhalers). 06/22/2022 senna 8.6 mg tablet TAKE 1 TABLET BY MOUTH EVERY DAY 90 tablet 02/28/2024 Vitamin D3 125 mcg (5,000 unit) tablet Take 1 tablet (5,000 Units total) by mouth 1 (one) time each day. 04/30/2024 albuterol HFA (PROAIR HFA ; PROVENTIL HFA ; VENTOLIN HFA) 90 mcg/actuation inhaler Inhale 2 Puffs into the lungs every 4 hours as needed for Cough or Wheezing. 06/22/2022 azithromycin (ZITHROMAX) 250 mg tablet TAKE 2 TABLETS BY MOUTH TODAY, THEN TAKE 1 TABLET DAILY FOR 4 DAYS DIRECTED 09/12/2024 Gas Relief Extra Strength 125 mg chewable tabletIndications: Flatulence symptom CHEW 1 TABLET EVERY 6 HOURS IF NEEDED FOR FLATULENCE FOR UP TO 10 DAYS. 30 tablet 5 07/31/2024 Gavilax 17 gram/dose oral powder DISSOLVE 17 GRAMS IN LIQUID AND DRINK BY MOUTH 2 TIMES A DAY FOR 15 DAYS. 06/21/2024 lactulose (Enulose) solution Take 30 mL (20 g total) by mouth 4 (four) times a day. 3600 mL 2 08/30/2024 ondansetron (ZOFRAN) 4 mg tabletIndications: Nausea Take 1 tablet (4 mg total) by mouth every 8 (eight) hours if needed for nausea or vomiting. 20 tablet 1 07/19/2024 Michael Rangel [facility] inhaler USE WITH INHALER DIRECTED 06/28/2024 pravastatin (PRAVACHOL) 40 mg tablet TAKE 1 TABLET BY MOUTH EVERY DAY 90 tablet 08/22/2024 predniSONE (DELTASONE) 20 mg tablet Take 2 tablets (40 mg total) by mouth 1 (one) time each day. for 5 days 06/28/2024 documented as of this encounter Discharge Disposition Disposition Code Departure Means Destination Home or Self Care documented in this encounter Plan of Treatment Upcoming Encounters Date Type Department Care Team (Late st Contact Info) Description 11/14/2024 11:15 AM EDT Office Visit Internal Medicine - [address] [address] Abhi Loza NP [address] [place] [address] 12/12/2024 2:00 PM EDT Office Visit Urogynecology [id number] [place] [address] Moira Rodriguez MD [address] [facility] [address] [place] [address] documented as of this encounter Procedures Procedure Name Priority Date/Time Associated Diagnosis Comments XR CERVICAL SPINE 4-5 VIEWS Routine 09/23/2024 1:06 PM EDT Cervical spondylosis with radiculopathy documented in this encounter Results * XR Cervical Spine 4-5 Views (09/23/2024 1:06 PM EDT) Anatomical Region Laterality Modality Spine, C-spine Radiographic Maricruz ging 09/24/2024 8:59 AM EDT Impressions 09/24/2024 9:01 AM EDT Continued satisfactory appearance following anterior fusion at the C5-7 levels, as also seen on the prior study performed 06/18/2024. Straightening of the cervical lordosis consistent with muscle spasm. Alignment is otherwise anatomic. There is no abnormal relative bony motion with flexion and extension. Range of motion is limited. Code 02269 -------- FINAL REPORT -------- Dictated By: Leandro Black Dictated Date: 09/24/2024 08:59 ET Assigned Physician: Leandro Black Reviewed and Electronically Signed By: Leandro Black Signed Date: 09/24/2024 09:01 ET Workstation ID: [id number] Transcribed By: Self Edit Transcribed Date: 09/24/2024 08:59 ET Narrative 09/24/2024 9:01 AM EDT HISTORY: The patient is a 58-year-old female with neck pain. FINDINGS: Lateral views of the cervical spine in neutral, flexion, and extension positions, along with an AP view, are obtained. The patient is again seen to have undergone anterior fusion at the C5-6 and C6-7 levels, also demonstrated on the prior study performed 06/18/2024. The surgical hardware remains well-positioned and intact. Again seen is straightening straightening of the cervical lordosis consistent with surgery. Alignment is otherwise anatomic. There is no abnormal relative bony motion with flexion and extension. Range of motion is limited. No fracture is seen. The remaining disc spaces are well-maintained. There is no prevertebral soft tissue swelling. Procedure Note Leandro Black MD - 09/24/2024 HISTORY: The patient is a 58-year-old female with neck pain. FINDINGS: Lateral views of the cervical spine in neutral, flexion, andextension positions, along with an AP view, are obtained. The patient isagain seen to have undergone anterior fusion at the C5-6 and C6-7 levels,also demonstrated on the prior study performed 06/18/2024. The surgicalhardware remains well-positioned and intact. Again seen is straighteningstraightening of the cervical lordosis consistent with surgery. Alignmentis otherwise anatomic. There is no abnormal relative bony motion withflexion and extension. Range of motion is limited. No fracture is seen.The remaining disc spaces are well-maintained. There is no prevertebralsoft tissue swelling. IMPRESSION: Continued satisfactory appearance following anterior fusion at the C5-7levels, as also seen on the prior study performed 06/18/2024. Straighteningof the cervical lordosis consistent with muscle spasm. Alignment isotherwise anatomic. There is no abnormal relative bony motion with flexionand extension. Range of motion is limited. Code 90405 -------- FINAL REPORT -------- Dictated By: Leandro Black Dictated Date: 09/24/2024 08:59 ET Assigned Physician: Leandro Black Reviewed and Electronically Signed By: Leandro Black Signed Date: 09/24/2024 09:01 ET Workstation ID: [id number] Transcribed By: Self Edit Transcribed Date: 09/24/2024 08:59 ET us Katherin Wray MD IMG XR PROCEDURES Final Result documented in this encounter Visit Diagnoses Diagnosis Cervical spondylosis with radiculopathy Cervical spondylosis with myelopathy documented in this encounter Care Teams Trader Relationship Specialty Start Date End Date Waylon Morataya MD [address] [place] [id number] PCP - General Internal Medicine 01/23/19 documented as of this encounter
--- NOTE | 2024-09-24 11:37 | MHC.OFFVIS ---
Intake Visit Reasons: after MRI Allergies No Known Allergies Allergy (Verified 01/16/24 10:23) HPI Comments Details: 58 yo woman, living alone and has no children, not working at this time, with non specific pain syndrome somewhat suggestive of fibromyalgia type syndrome. Overall presentation is also suggestive of somatization disorder. She was back after brain MRI to r/o MS. Her main complaint at this time was numbness and tingling in her hands and arms legs and feet on top of feet. She was having stiffness of neck and constant headaches. Her balance was off.[facility] Medical History (Updated 09/24/24 @ 12:04 by Danna Robles MD) Peroneal neuropathy Somatization disorder Paresthesia of skin Fibromyalgia Gait disorder Cervical spondylarthritis Migraine equivalent syndrome Migraine without aura Numbness and tingling Muscle spasm Arm pain IBS (irritable bowel syndrome) Eczema Vertigo Frequent headaches Hyperlipidemia GERD (gastroesophageal reflux disease) Bunion Depression with anxiety Asthma Allergic rhinitis Endometriosis Cervical spondylosis with radiculopathy Family History (Updated 08/21/24 @ 14:21 by Mindy Arroyo MA) Brother History of back surgery Brother History of brain shunt Social History (Updated 08/21/24 @ 14:20 by Mindy Arroyo MA) Alcohol intake: current Patient Tobacco Use Status: Never used Tobacco Assessment & Plan Assessment & Plan (1) Fibromyalgia: Comment: Meds tried: Gabapentin, Topamax, cyclobenzaprine, duloxetine MRI brain WWO at [facility] in August 2024: WNL EMG/NCS LEs at off in Mar 2024: b/l, left more than right, peroneal neuropathy NCV/EMG UE (in office) No significant abnormality noted in this study. 03/06/23. MRI C spine WO at [facility] in Dec 2021: multilevel b/l foraminal stenosis NCV/EMG UE This is a normal study. 12/06/21. MRI brain WO at [facility] in August 2020: Mild gliotic change in frontal of left frontal horn, otherwise ok MRI C spine at [facility] in Apr 2020: diff DJD, b/l C 5/6 foraminal stenosisXR left ankle in Feb 2024: WNL MRI C spine at [facility] in 2012: straight curvature, mod spondylosis at C 5/6 MRI C spine at [facility] in 2013: same as above04/21/20 NCV/EMG UE This is a normal study. EEG at office in Apr 2020: WNL. Code(s): M79.7 - Fibromyalgia Category: Medical Plan Impression: a: Multilevel cervical disc diasease s/p C 06/25, 07/27 ACDF with plating in 2022. MRI in 2023 and xray in June 2024 revealed no new significant issue. b: Chronic neck pain and headaches, which is difficult to explain only from the neck pathology c: Migraine, likely contributing to neck and head pain d: Fibromyalgia/myofacial type pain syndrome e: Somatization disorder f: Chronic stress/anxiety/depression contributing to her symptoms g: Paresthesias arms and legs with EMG/NCS revealing only mild peroneal neuropathy, which would not explain her symptoms Rec: a: Reassurance and education b: Symptomatic treatment of pain and mood c: Continue Duloxetine 30mg bid d: Gabapentin 300mg tid, which also works as anti anxiety med e: Cyclobenperine 10mg at night f: Continue to f/u with psychiatrist/therapist Coding Level of Care Code Est Pt Level 5 (53675) Diagnoses Fibromyalgia M79.7
--- OUTSIDE RECORDS SUMMARY | 2024-09-24 12:05 | XMS_ITS | Clinical Summary ---
Author Organization [employer] Address [address] [facility] [place] [address] Care Team Providers Care Inseam Leveler Name Role Phone Pcp, No Primary Care Provider [phone] Allergies No known active allergies Medications chlorhexidine [...] Adults 18 yrs or above (or HM Modifier)([facility]) 12/07/1981 Hepatitis C Virus Infection in Adolescents and Adults: Screening (or Modifier) ([facility]) 12/07/1981 SDOH Screening Reminder: Minnie benitez for all adults ([facility]) 12/07/1981 Tobacco Smoking Cessation: i n Adults excluding Women: Behavioral and Pharmacotherapy Interventions ([facility]) 12/07/1981 DTaP/Tdap/Td Vaccines ([facility]) (1 - Tdap) 12/07/1982 Cervical Cancer Screenin 1-65 yrs of age (or Modifier) 12/07/1984 Cervical Cancer Screening: P ap every 3 yrs pts age 21-65 12/07/1984 Cervical Cancer: Pap Screeni ng with Modifier timing ([facility]) 12/07/1984 Cervical Cancer: hrHPV alone or with cotesting Pap for Pts 30-65yrs screening every 5yrs ([facility]) 12/07/1984 Colorectal Cancer Screening 45 -75 Yrs (or HM Modifier ) 12/07/2008 Colorectal Cancer: FLEXIBLE SIGMOIDOSCOPY Screening every 5 yrs 12/07/2008 Colorectal Cancer: Fecal Imm unochemical Test (FIT) Annually [facility] 12/07/2008 Colorectal Cancer: High-sens itivity gFOBT Screening Annually [facility] 12/07/2008 Colorectal Cancer: Stool Col oguard Screening every 3 yrs 12/07/2008 Colorectal Cancer:CT Colonography Screening every 5 yr s 12/07/2008 Breast Cancer: Screening Minnie emmanuel age 50-74 yrs (or HM Modifier)([facility]) 12/07/2013 Pneumococcal Vaccination Scr eening: Patients 50+ yrs of age ([facility]) (1 of 1 - PCV) 12/07/2013 Zoster/Shingles Vaccine Seri es Screening: Adults aged 18+ yrs (or HM Modifiers)([facility]) (1 of 2) 12/07/2013 COVID-19 Vaccine Screening: Initial Series and Booster Status ([facility]) ( - 2023-25 season) 2023 Flu Vaccination: Yearly for ages 18mos through 64 years (or Modifier)([facility] ) 09/20/2024 RSV Vaccines (1 - 1-dose 75+ series) 12/07/2038 Medical Devices Not on file Insurance [facility] [employer] Care Teams Inseam Leveler Relationship Specialty Start Date End Date Pcp, No PCP - General Family Medicine 03/03/23
--- OUTSIDE RECORDS SUMMARY | 2024-09-24 12:05 | XMS_ITS ---
Author Name [facility] Organization Unknown Care Team Organization Name Specialty Phone Email Start Date End Da te [facility] Waylon Morataya Primary Care 12/28/2021 10/09/2023
--- OUTSIDE RECORDS SUMMARY | 2024-09-24 12:05 | XMS_ITS | Clinical Summary ---
Author Organization [facility] Address [address] [place] [address] Care Team Providers Care Locomotive Crane Operator Name Role Phone Waylon Morataya MD Primary Care Provider [phone] Social History Tobacco Use Types Packs/Day Years [...] age to complete this topic Care Teams Locomotive Crane Operator Relationship Specialty Start Date End Date Waylon Morataya MD [address] [place] [address] PCP - General Internal Medicine 05/28/20
== END 2024-09-24 12:08 | disposition home or self-care (01) ==
LOC: HO.HSM 11:19
PROVIDERS: PCP Internal Medicine; Visit Provider Psychiatry & Neurology Neurology
DX: M79.7 Fibromyalgia (principal)
CPT/HCPCS: 99214

== ENCOUNTER → 2024-09-24 11:18 | Outpatient (BNVA) | payer OTHER, SELFPAY | PROVIDERS: PCP Internal Medicine; Visit Provider Psychiatry & Neurology Neurology | DX: M79.7 Fibromyalgia (principal) | CPT/HCPCS: 99212 ==

== ENCOUNTER 2024-10-28 11:39 | Emergency (ER) | payer OTHER, SELFPAY ==
--- NOTE | ~2024-10-28 | XR_ITS ---
EXAMINATION: XR LUMBOSACRAL SPINE CLINICAL INFORMATION: pain, injury COMPARISON: None available. TECHNIQUE: Three views of the lumbosacral spine. FINDINGS: There are 5 nonrib-bearing lumbar segments. There is mild disc space narrowing at T12-L1 through L4-5 and moderate narrowing at L5-S1. There is facet sclerosis at L3-4, L4-5, and L5-S1. XR/XR lumbar spine 2-3V IMPRESSION: Degenerative disc disease and facet osteoarthritis. Electronically signed by: Brian Hawkins MD 10/28/2024 12:26 PM EDT
--- NOTE | ~2024-10-28 | CT_ITS ---
EXAMINATION: CT HEAD WITHOUT CONTRAST CLINICAL INFORMATION: Pain after injury COMPARISON: MRI on September 09, 2024 TECHNIQUE: Contiguous axial imaging was performed from the skull base to vertex without intravenous administration of contrast. This CT examination was performed using dose optimization techniques as appropriate, variously including the following: *Automated exposure control *Adjustment of mA and/or kV according to patient size (this includes techniques or standardized protocols for targeted exams where dose is matched to indication/reason for exam; i.e. extremities or head) *Use of iterative reconstruction technique DLP: 597 mGY*cm FINDINGS: There is no acute ischemic change. There is no intracranial hemorrhage. There is no mass-effect or midline shift. Basal cisterns and ventricles are within normal limits for age/cerebral volume. Orbits are symmetrical and unremarkable. Paranasal sinuses and mastoid air cells are pneumatized. There are no bony abnormalities. CT/CT head/brain wo IV con IMPRESSION: No acute intracranial abnormality. Electronically signed by: Brian Hawkins MD 10/28/2024 01:50 PM EDT
--- NOTE | ~2024-10-28 | XR_ITS ---
EXAMINATION: XR SACRUM AND COCCYX CLINICAL INFORMATION: pain, injury COMPARISON: None available. TECHNIQUE: 2 views of the sacrum and 2 views of the coccyx were obtained. FINDINGS: No fracture line or cortical step-off is evident in the sacrum and coccyx. There are degenerative changes in the lower lumbar spine. SI joints are unremarkable. XR/XR sacrum coccyx min 2V IMPRESSION: Unremarkable sacrum and coccyx. Electronically signed by: Brian Hawkins MD 10/28/2024 12:27 PM EDT
[2024-10-28 12:01] VITALS: BP 129/62; PULSE 68; RESP 14; TEMP 36.5; O2SAT 98; BMI 25.9
--- NOTE | 2024-10-28 12:04 | ED_ITS ---
HPI - General Adult General Chief complaint: Fall Stated complaint: fall this am, hit back of head on door Time Seen by Provider: 10/28/24 14:47 Source: patient Mode of arrival: ambulatory Limitations: no limitations History of Present Illness ED Provider: Noemi Sanchez PA-C HPI narrative: Patient is a 58 year old assigned female at with a history of gait instability for which she follows with Dr. Robles at [facility] Neurology, fibromyalgia, and somatization disorder presenting to the emergency department today with a headache and low back / buttock pain after a fall. Patient states that she bent over to grab something, lost her balance, and fell backwards this morning. Patient denies any loss of consciousness. Patient sates that her buttock / low back and her head hurt. Patient states that she is nauseous but has not vomited. Patient denies any vision changes. Patient denies any other complaints at this time. Related Data Home Medications ?Medication ?Instructions ?Recorded ?Confirmed inhalational spacing device #1 ea 07/17/24 (Michael Rangel [facility] spacer) omeprazole 40 mg capsule,delayed 40 mg PO DAILY release ondansetron HCl 4 mg tablet 4 mg PO Q8H PRN 07/17/24 pravastatin 40 mg tablet 40 mg PO DAILY 07/17/24 clonazepam 0.5 mg tablet mg PO BID 08/21/24 quetiapine 25 mg tablet mg PO DAILY 08/21/24 fluoxetine 20 mg capsule 20 mg PO QAM 08/22/24 Previous Rx's ?Medication ?Instructions ?Recorded duloxetine 30 mg capsule,delayed 30 mg PO BID 90 days #180 caps 08/22/24 release cyclobenzaprine 10 mg tablet 10 mg PO BEDTIME 90 days #90 tabs 09/25/24 gabapentin 300 mg capsule 300 mg PO TID #270 caps 09/21 11/14 ondansetron 4 mg disintegrating 4 mg PO Q8H 3 days #9 tabs 10/28/24 tablet Allergies Allergy/AdvReac Type Severity Reaction Status Date / Time No Known Allergies Allergy Verified 10/28/24 12:03 Review of Systems 2 Constitutional: Constitutional: Reports as per HPI Eyes: Eyes: Reports as per HPI ENT: Reports as per HPI Cardiovascular: Cardiovascular: Reports as per HPI Respiratory: Respiratory: Reports as per HPI Gastrointestinal: Gastrointestinal: Reports as per HPI Genitourinary: Genitourinary: Reports as per HPI Musculoskeletal: Musculoskeletal: Reports as per HPI Integumentary/Breasts: Skin/Breast: Reports as per HPI Neurologic: Reports as per HPI Psychiatric: Psychiatric: Reports as per HPI Endocrine: Endocrine: Reports as per HPI Hematologic/Lymphatic: Hematologic/Lymphatic: Reports as per HPI Allergic/Immunologic: Allergic/Immunologic: Reports as per HPI [facility] Past Medical History Attestation statement: The following information was validated with the patient. Source: old records reviewed and nursing notes reviewed Medical History Peroneal neuropathy Somatization disorder Paresthesia of skin Fibromyalgia Gait disorder Cervical spondylarthritis Migraine equivalent syndrome Migraine without aura Numbness and tingling Muscle spasm Arm pain IBS (irritable bowel syndrome) Eczema Vertigo Frequent headaches Hyperlipidemia GERD (gastroesophageal reflux disease) Bunion Depression with anxiety Asthma Allergic rhinitis Endometriosis Cervical spondylosis with radiculopathy Family History Family History Brother History of back surgery Brother History of brain shunt Social History Social History Alcohol intake: current Patient Tobacco Use Status: Never used Tobacco Advance Directives: No Advance Directives Information Provided: Yes Do you have a plan to hurt others: No Plan Physical Exam ED Vital Signs: Vital Signs - 24 hr 10/28/24 12:01 Temperature 97.7 F Pulse Rate 68 Respiratory Rate 14 Blood Pressure 129/62 Pulse Oximetry 98 Oxygen Delivery Method Room Air BMI result Body Mass Index 25.9 Const General: cooperative, no acute distress, alert and awake Nutritional Appearance: well nourished Orientation/consciousness: patient oriented x3 [facility] Head images: 2 1. small hematoma - no open areas, no bleeding Ears: hearing grossly normal bilaterally and external ears normal General nose exam: Normal external nose present, no nasal discharge noted and no epistaxis Face and sinus: Yes normal facial exam, No abrasion and No laceration Mouth: Normal oral and palatal mucosa present, no drooling and no muffled voice Eyes General: appearance normal, both eyes and all related structures Periorbital: periorbital findings normal Eyelids: Yes eyelids normal Conjunctivae: conjunctivae normal Pupils: Equal, round and reactive pupils present EOM: EOMs intact bilaterally Neck Neck: Yes normal visual inspection and Yes full ROM Resp Effort & Inspection: normal respiratory effort and able to speak in complete sentences Neuro General: patient oriented x3, moves all extremities and CN's II-XI intact bilaterally Cranial nerves: Yes Equal, round and reactive pupils present Cognition (Neuro): normal cognition Extrem General: Yes normal to inspection, Yes full ROM and Yes capillary refill normal Psych Appearance: grossly normal Mental Status: mental status grossly normal Affect: normal affect Attitude: cooperative Thought process: Normal thought process present Thought content: Normal thought content present Insight: Good insight present (Psych) Course Course Course Narrative: Rapid medical examination performed in triage by Noemi Sanchez PA-C. Patient is a 58 year old assigned female at presenting to the emergency department with a headache and low back pain / buttock pain after a fall. Detailed physical exam and review of systems are deferred to the acid purification equipment operator. Imaging ordered. Patient placed back in the waiting room pending room availability and results. Medical Decision Making Medical Decision Making MDM Narrative: Patient is a 58 year old assigned female at with a history of gait instability for which she follows with Dr. Robles at [facility] Neurology, fibromyalgia, and somatization disorder presenting to the emergency department today with a headache and low back / buttock pain after a fall. Patient's physical exam was as noted in the physical exam portion of this note. Patient's lumbar and coccyx x-rays showed no acute process. Patient's CT head was negative. I explained my physical exam findings as well as all test results to the patient. I answered all questions asked by the patient. Patient's clinical presentation is most consistent with a concussion s/p fall. I stressed the importance of the patient taking her medication as directed (either prescribed or as the over the counter packaging recommends). I stressed the importance of the patient following up with her primary care provider. I stressed the importance of the patient returning to the emergency department immediately if her symptoms were to worsen or if she were to develop any dizziness, shortness of breath, difficulty breathing, chest pain, blurry vision, loss of vision, nausea, vomiting, abdominal pain, fever, chills, back pain, or any other complaints. Patient verbalized agreement and understanding with this treatment plan and discharge. Differential Diagnosis Differential Diagnoses: The differential diagnosis associated with the presentation includes Concussion Fracture Sprain Strain Contusion Admission/Observation Consideration of admission/observation: Escalation of care including admission/observation considered Patient would have been admitted to the hospital had her work up had any findings where hospital admission was appropriate and her clinical presentation warranted hospital admission. Independent Interpretation I performed an independent interpretation of an: Plain X-Ray and CT Scan Interpretation: My interpretation is in agreement with the radiologist's impression of these imaging studies. L EXAMINATION: XR LUMBOSACRAL SPINE CLINICAL INFORMATION: pain, injury COMPARISON: None available. TECHNIQUE: Three views of the lumbosacral spine. FINDINGS: There are 5 nonrib-bearing lumbar segments. There is mild disc space narrowing at T12-L1 through L4-5 and moderate narrowing at L5-S1. There is facet sclerosis at L3-4, L4-5, and L5-S1. XR/XR lumbar spine 2-3V IMPRESSION: Degenerative disc disease and facet osteoarthritis. Electronically signed by: Brian Hawkins MD 10/28/2024 12:26 PM EDT Dictated By: Brian Hawkins MD Signed By: Electronically signed by Brian Hawkins MD 10/28/24 1226 EXAMINATION: XR SACRUM AND COCCYX CLINICAL INFORMATION: pain, injury COMPARISON: None available. TECHNIQUE: 2 views of the sacrum and 2 views of the coccyx were obtained. FINDINGS: No fracture line or cortical step-off is evident in the sacrum and coccyx. There are degenerative changes in the lower lumbar spine. SI joints are unremarkable. XR/XR sacrum coccyx min 2V IMPRESSION: Unremarkable sacrum and coccyx. Electronically signed by: Brian Hawkins MD 10/28/2024 12:27 PM EDT Dictated By: Brian Hawkins MD Signed By: Electronically signed by Brian Hawkins MD 10/28/24 1227 Reason for Exam: pain, injury EXAMINATION: CT HEAD WITHOUT CONTRAST CLINICAL INFORMATION: Pain after injury COMPARISON: MRI on September 09, 2024 TECHNIQUE: Contiguous axial imaging was performed from the skull base to vertex without intravenous administration of contrast. This CT examination was performed using dose optimization techniques as appropriate, variously including the following: *Automated exposure control *Adjustment of mA and/or kV according to patient size (this includes techniques or standardized protocols for targeted exams where dose is matched to indication/reason for exam; i.e. extremities or head) *Use of iterative reconstruction technique DLP: 597 mGY*cm FINDINGS: There is no acute ischemic change. There is no intracranial hemorrhage. There is no mass-effect or midline shift. Basal cisterns and ventricles are within normal limits for age/cerebral volume. Orbits are symmetrical and unremarkable. Paranasal sinuses and mastoid air cells are pneumatized. There are no bony abnormalities. CT/CT head/brain wo IV con IMPRESSION: No acute intracranial abnormality. Electronically signed by: Brian Hawkins MD 10/28/2024 01:50 PM EDT RP Dictated By: Brian Hawkins MD Signed By: Electronically signed by Brian Hawkins MD 10/28/24 1350 Radiology Impression Discussion of test interpretation with radiology: I have reviewed the radiologist's reading. Discharge Plan Discharge Clinical Impression: Fall, Concussion Patient Disposition: Home, Self-Care Instructions: Concussion (ED), Fall Prevention for Older Adults (ED) Additional Instructions: Your imaging today showed no acute process. You may have a concussion. IF you are prescribed home medications and/or you are taking over the counter medications at home - it is very important you continue to do so as prescribed / directed unless told otherwise. Follow up with your primary care provider. Return to the emergency department immediately if your symptoms worsen or if you develop any numbness, tingling, dizziness, shortness of breath, difficulty breathing, chest pain, blurry vision, loss of vision, vomiting, abdominal pain, fever, chills, back pain, or any other complaints. Please see the information below about our Patient Portal. If you are not yet enrolled in the [facility] Patient Portal, you will receive an enrollment email invitation following your visit to any [facility] care setting. You may also self-enroll in the Patient Portal by visiting our website: [email or web address] The following information is required to access the Patient Portal: - Your [facility] Medical Record Number - Your personal home email address (must match what is in your electronic medical record, Registration staff can assist with this) - Name - Date of Capabilities of the Patient Portal: - Message some providers - View upcoming appointments - Access your health summary, medical history, and visit history - View current conditions and allergies - View procedure and lab results - View your medications, including guidelines, side effects, and precautions - Complete pre-appointment questionnaires requested by your provider - Ready summary reports of your office visits and procedures To access the Patient Portal Mobile Tamara, follow these directions: - Search Goojet in the Tamara Store or Google Medstro Store - Download the Tamara - Search for [facility] - Enter your login/password Prescriptions: New ondansetron 4 mg tablet,disintegrating 4 mg PO Q8H 3 Days Qty: 9 0RF No Action pravastatin 40 mg tablet 40 mg PO DAILY omeprazole 40 mg capsule,delayed release(DR/EC) 40 mg PO DAILY (DME) [facility] Spacer See Rx Instructions .ROUTE .MEDSUPPLY Qty: 1 Rx Instructions: As directed ondansetron HCl 4 mg tablet 4 mg PO Q8H PRN clonazepam 0.5 mg tablet PO BID quetiapine 25 mg tablet PO DAILY cyclobenzaprine 10 mg tablet 10 mg PO BEDTIME 90 Days Qty: 90 0RF gabapentin 300 mg capsule 300 mg PO TID Qty: 270 0RF fluoxetine 20 mg capsule 20 mg PO QAM duloxetine 30 mg capsule,delayed release(DR/EC) 30 mg PO BID 90 Days Qty: 180 0RF Referrals: Waylon Morataya MD [Primary Care Provider, Internal Medicine] Print Language: Japanese
--- OUTSIDE RECORDS SUMMARY | 2024-10-28 18:12 | XMS_ITS | Clinical Summary ---
Author Organization [facility] Address [address] [place] [address] Care Team Providers Care Flyer Builder Name Role Phone Waylon Morataya MD Primary Care Provider [phone] Social History Tobacco Use Types Packs/Day Years [...] age to complete this topic Care Teams Flyer Builder Relationship Specialty Start Date End Date Waylon Morataya MD [address] [place] [address] PCP - General Internal Medicine 05/28/20
--- OUTSIDE RECORDS SUMMARY | 2024-10-28 18:12 | XMS_ITS | Clinical Summary ---
Author Organization [employer] [facility] [facility] Address [address] [facility] [place] [address] Care Team Providers Care Cigar Tobacco Rehandler Name Role Phone Pcp, No Primary Care Provider [phone] Allergies No known active allergies Medications chlorhexidine [...] Adults 18 yrs or above (or HM Modifier)([facility]) 12/07/1981 Hepatitis C Virus Infection in Adolescents and Adults: Screening (or Modifier) ([facility]) 12/07/1981 SDMS Screening Reminder: Minnie benitez for all adults ([facility]) 12/07/1981 Tobacco Smoking Cessation: i n Adults excluding Women: Behavioral and Pharmacotherapy Interventions ([facility]) 12/07/1981 DTaP/Tdap/Td Vaccines ([facility]) (1 - Tdap) 12/07/1982 Cervical Cancer Screenin 1-65 yrs of age (or Modifier) 12/07/1984 Cervical Cancer Screening: P ap every 3 yrs pts age 21-65 12/07/1984 Cervical Cancer: Pap Screeni ng with Modifier timing ([facility]) 12/07/1984 Cervical Cancer: hrHPV alone or with cotesting Pap for Pts 30-65yrs screening every 5yrs ([facility]) 12/07/1984 Colorectal Cancer Screening 45 -75 Yrs (or HM Modifier ) 12/07/2008 Colorectal Cancer: FLEXIBLE SIGMOIDOSCOPY Screening every 5 yrs 12/07/2008 Colorectal Cancer: Fecal Imm unochemical Test (FIT) Annually [facility] 12/07/2008 Colorectal Cancer: High-sens itivity gFOBT Screening Annually [facility] 12/07/2008 Colorectal Cancer: Stool Col oguard Screening every 3 yrs 12/07/2008 Colorectal Cancer:CT Colonography Screening every 5 yr s 12/07/2008 Breast Cancer: Screening Minnie emmanuel age 50-74 yrs (or HM Modifier)([facility]) 12/07/2013 Pneumococcal Vaccination Scr eening: Patients 50+ yrs of age ([facility]) (1 of 1 - PCV) 12/07/2013 Zoster/Shingles Vaccine Seri es Screening: Adults aged 18+ yrs (or HM Modifiers)([facility]) (1 of 2) 12/07/2013 Flu Vaccination: Yearly for ages 18mos through 64 years (or Modifier)([facility]) 09/20/2024 RSV Vaccines (1 - 1-dose 75+ series) 12/07/2038 Medical Devices Not on file Insurance [facility] Care Teams Cigar Tobacco Rehandler Relationship Specialty Start Date End Date Pcp, Brooke PCP - General Family Medicine 03/03/23
--- OUTSIDE RECORDS SUMMARY | 2024-10-28 18:12 | XMS_ITS | Clinical Summary ---
Author Organization 175 [facility] Address [address] [place] [address] Phone Care Team Providers Care Gore Stitcher Name Role Phone Waylon Morataya MD Primary Care Provider [phone] Allergies No known active allergies Medications omeprazole (PriLOSEC) [address] capsule Take 1 capsule (40 mg total) by mouth 1 (one) time each day. 4 Active gabapentin (NEURONTIN) 300 mg capsule Take 1 capsule (300 mg total) by mouth 1 (one) time each day. 4 Active cyclobenzaprine (FLEXERIL) 5 mg tablet Take 1 tablet (5 mg total) by mouth 3 (three) times a day if needed. 4 Active reservoir inhalation (INSPIREASE) device 1 Each by Does not apply route as needed for Other (To use with inhalers). 3 Active albuterol HFA (PROAIR HFA ; PROVENTIL HFA ; VENTOLIN HFA) 90 mcg/actuation inhaler Inhale 2 Puffs into the lungs every 4 hours as needed for Cough or Wheezing. 3 Active FLUoxetine (PROzac) 20 mg capsule 2 capsules daily. 1 Active QUEtiapine (SEROquel) 25 mg tablet 1 tablet BID 1 Active clonazePAM (KlonoPIN) 0.5 mg tablet Take 1 Tab by mouth 2 times daily. 1 Active multivit-min/iro n/folic acid/K (ADULTS MULTIVITAMIN ORAL) Take 1 Tab by mouth daily. Active senna 8.6 mg tablet TAKE 1 TABLET BY MOUTH EVERY DAY 90 tablet 5 Active Additional Information Patient not taking.Reported on 09/23/2024 meloxicam (MOBIC) 15 mg tablet Active Caltrate with Vitamin D3 600 mg-20 mcg (800 unit) tablet Take 1 tablet by mouth. 5 Active Vitamin D3 125 mcg (5,000 unit) tablet Take 1 tablet (5,000 Units total) by mouth 1 (one) time each day. 5 Active DULoxetine (CYMBALTA) [address] capsule Take 1 capsule (30 mg total) by mouth 2 (two) times a day. 5 Active ondansetron (ZOFRAN) 4 mg tabletIndication s:Nausea Take 1 tablet (4 mg total) by mouth every 8 (eight) hours if needed for nausea or vomiting. 20 tablet 1 5 Active Gas Relief Extra Strength 125 mg chewable tabletIndication s:Flatulence symptom CHEW 1 TABLET EVERY 6 HOURS IF NEEDED FOR FLATULENCE FOR UP TO 10 DAYS. 30 tablet 5 5 Active pravastatin (PRAVACHOL) 40 mg tablet TAKE 1 TABLET BY MOUTH EVERY DAY 90 tablet 5 Active [facility] inhaler USE WITH INHALER DIRECTED Active predniSONE (DELTASONE) 20 mg tablet Take 2 tablets (40 mg total) by mouth 1 (one) time each day. for 5 days 5 Active Gavilax 17 gram/dose oral powder DISSOLVE 17 GRAMS IN LIQUID AND DRINK BY MOUTH 2 TIMES A DAY FOR 15 DAYS. 5 Active lactulose (Enulose) solution Take 30 mL (20 g total) by mouth 4 (four) times a day. 3600 mL 2 5 11/29/19 25 Active azithromycin (ZITHROMAX) 250 mg tablet TAKE 2 TABLETS BY MOUTH TODAY, THEN TAKE 1 TABLET DAILY FOR 4 DAYS DIRECTED 5 Active Active Problems Problem Noted Date Diagnosed Date [...] cervical spine MRI based on those results. Assessment & Plan (09/23/2024 4:30 PM EDT): I reviewed the x-rays in detail with Ms. Ventura letting her know that C6-7 appears fused and while C5-6 appears more sclerotic, there is still a linear gap, despite her more consistent use of the external bone stimulator. The periodic doses of prednisone may have contributed to this. The hardware remains in place with no haloing so if there is any motion at all, it is micromotion. The level should be shielded. It is hard to use this to explain her all of her persistent symptoms given that some patients with imaging like this are completely asymptomatic. She remains out of work and is quite frustrated with her ongoing daily symptoms. At this point, all I can do is revise C5-6 replacing it with TriTanium and DBM. The last time we spoke, I recommended returning to pain management to see if they had anything new to offer or if she may respond differently now that she has had surgery. We agreed that she would try that this time before we consider more surgery. Looking through her chart, I see that she has seen Dr. Rocha in the past so I will refer her back to him to consider C5-6 facet injections or what else he would recommend. Assessment & Plan (06/18/2024 2:15 PM EDT): I reviewed all the available information to date with Ms. Ventura. I believe she has made some progress and appears to have a good arthrodesis at C6-7 though C5-6 remains incomplete. She continues to describe this tingling in her hands that is often positional but her EMG from 1 year ago showed no significant abnormality . At this point, I recommended she continue taking her current medication including gabapentin, she is going to start calcium plus vitamin D and has agreed to try wearing external bone growth stimulator 2 hours at a time to at least have more consistent days wearing it. She will call us in a month with an update on how often she has been able to wear it and then I will decide when to schedule her next set of x-rays. Allergic rhinitis 10/30/2017 Asthma 08/02/2017 Bunion 08/02/2017 Depression with anxiety 08/02/2017 GERD (gastroesophageal reflux disease) 8 Hyperlipidemia 08/02/2017 Bleeding external hemorrhoids 06/06/2017 Frequent headaches 01/24/2017 Vertigo 01/24/2017 Eczema 08/01/2016 IBS (irritable bowel syndrome) 07/22/2015 Encounters Date Type Department Care Team Description 09/23/2024 3:00 PM EDT Office Visit Neurosurgery [facility] [address] [facility] [address] [place] [phone] Katherin Wray MD Cervical spondylosis with radiculopathy (Primary Dx) 09/23/2024 12:53 PM EDT - 09/23/2024 11:59 PM EDT Hospital Encounter [facility] Xray [address] [place] [phone] Cervical spondylosis with radiculopathy Discharge Disposition: Home or Self Care 09/03/2024 3:47 PM EDT - 09/03/2024 11:59 PM EDT Hospital Encounter Radiology Department - [address] [phone] Pelvic pressure in female; History of uterine fibroid Discharge Disposition: Home or Self Care 09/02/2024 9:00 AM EDT Office Visit Obstetrics & Gynecology [address] [phone] Frank Cano CNM Pelvic pressure in female (Primary Dx); History of uterine fibroid; Postmenopause; History of endometriosis; Female stress incontinence 08/30/2024 1:30 PM EDT Office Visit Gastroenterology [address] [phone] Honey Hart MD Abdominal pain, unspecified abdominal location; Constipation, unspecified constipation type 08/26/[address] [facility] [address] [facility] [address] [place] [phone] Shannon Wills MD 08/20/2024 2:00 PM EDT Consult General Surgery [address] [place] [address] Shannon Wills MD Constipation by delayed colonic transit (Primary Dx); Gall bladder polyp; History of endometriosis; Abdominal pain, unspecified abdominal location from Last 3 Months Immunizations Name Administration Dates Next Due Influenza Quadravalent, MDCK , 0.5ml, preservative free (Flucelvax) 6mo and older 12/03/2021,11/19/2019,12/13/2016 Influenza Quadrivalent, 0.5m l, preservative free (Fluarix; FluLaval; Fluzone) ages 6mo and older (Afluria) 3yo and older 10/31/2022,12/16/2020,11/26/2018,12/17 Influenza trivalent, 0.5mL, preservative free (Fluarix; FluLaval; Fluzone) ages 6mo and older (Afluria) 3 years and older 01/02/2024 Influenza trivalent, with pr eservative (Fluzone; Afluria) 6mo and older 11/26/2018 Influenza, Unspecified 12/01/2020 Moderna SARS-CoV-2 COVID-19, mRNA, LNP-S, preservative free 01/29/2021,06/28/2020 Pneumococcal polysaccharide 23 valent (Pneumovax 23) 2yo and older 01/28/2016 Td Tetanus diptheria (Tdvax) 7yo and older 10/06/2022 Zoster recombinant (Shingrix ) 19yo and older 08/19/2018,02/28/2018 Surgical History Surgery Date Site/Laterality Comments APPENDECTOMY PROCEDURE: HISTORICAL APPENDECTOMY TONSILLECTOMY PROCEDURE: HISTORICAL TONSILLECTOMY OTHER SURGICAL HISTORY PROCEDURE: HISTORY OTHER; COMMENT: hernia repair inguinal left OTHER SURGICAL HISTORY PROCEDURE: ---- OTHER ----; COMMENT: Laproscopic surgery APPENDECTOMY PROCEDURE: MN APPENDECTOMY COLONOSCOPY PROCEDURE: HISTORICAL COLONOSCOPY CERVICAL BIOPSY W/ LOOP ELECTRODE EXCISION PROCEDURE: MN CONIZATION CERVIX W/WO D&C RPR ELTRD EXC; COMMENT: Cryosurgery at age 36 NECK SURGERY 11/10/2022 PROCEDURE: HISTORICAL NECK SURGERY; COMMENT: C5-6, C6-7 ACDF with plating, Dr. Wary Medical History Medical History Date Comments Allergic [...] Family History Medical History Relation Name Comments Breast cancer Aunt maternal Ovarian cancer Aunt maternal Other: hydrocephalus Brother 1 No Known Problems Brother 2 Other cancer Father skin Coronary artery disease Maternal Grandfather Coronary artery disease Maternal Grandmother Diabetes Mother cad Esophageal cancer Paternal Grandfather No Known Problems Sister Relation Name Status Comments Aunt maternal Brother 1 Alive Brother 2 Alive Father Alive Maternal Grandfather Maternal Grandmother Mother Alive Paternal Grandfather Paternal Grandmother Sister Alive Social History Tobacco Use Types Packs/Day Years Used Date Smoking Tobacco: Never Smokeless Tobacco: Never Tobacco Cessation:Counseling Given: Not Answered Alcohol Use Standard Drinks/Week Comments Not Currently [...] for your loved ones. For example, child advocate or elderly care for an older adult? [...] on file Sexual Orientation Not on file Obstetrics History Para Term AB IAB SAB Ectopic Multiple Livin g Live Births 0 0 0 Last Filed Vital Signs Vital Sign Reading Time Taken Comments Blood Pressure 125/86 09/02/2024 9:06 AM EDT Pulse 83 09/02/2024 9:06 AM EDT Temperature 36.3 C (97.3 F) 08/20/2024 1:23 PM EDT Respiratory Rate - - Oxygen Saturation 97% 06/21/2024 1:40 PM EDT room air Inhaled Oxygen Concentration - - Weight 79.8 kg (176 lb) 09/23/2024 2:48 PM EDT Height 162.6 cm (5' 4 ) 09/23/2024 2:48 PM EDT Body Mass Index 30.21 09/23/2024 2:48 PM EDT Plan of Treatment Upcoming Encounters Date Type Department Care Team (Late st Contact Info) Description 11/14/2024 11:15 AM EDT Office Visit Internal Medicine - [address] [phone] Abhi Loza NP [address] [place] [address] 12/12/2024 2:00 PM EDT Office Visit Urogynecology - [address] [phone] Moira Rodriguez MD [address] [place] [address] [address] [place] [address] Health Maintenance Due Date Last Done Comments Pneumococcal Vaccine: 50+ Years (2 of 2 - PCV) 01/27/2017 01/28/2016 HIV Screening 01/29/2022 RSV Immunization Adult Patients (1 - Risk 60-74 years 1-dose series) 2023 Depression Screening 02/21/2024 08/28/2023 COVID-19 Vaccine ( - season) 2024 09/12/2021, 01/29/2021, 06/28/2020, Additional history exists Influenza Vaccine (#1) 2024 , 10/31/2022, 12/03/2021, Additional history exists Social Influencers of Health Screening 03/12/2025 03/12/2024 Breast Cancer Screening 07/25/2026 07/26/19, 07/12/2023, 07/12/2023, Additional history exists Cervical Cancer Screening: HPV 01/18/2027 01/18/2022 Cholesterol Screening (Lipid Panel) 11/08/2028 11/09/2023, 11/09/2023, 08/28/2023 DTaP,Tdap,and Td Vaccines (2 - Td or Tdap) 10/06/2032 10/06/2022 Colorectal Cancer Screening: Colonoscopy 10/27/2032 10/27/2022 Zoster Vaccines Completed 08/19/2018, 02/28/2018 Hepatitis C Screening Completed 03/09/2019 HIB Vaccines Aged Out No longer eligi [...] patient's age to complete this topic Meningococcal B Vaccine Aged Out No l onger eligible based on patient's age to complete this topic RSV Immunization Patients Under 20 months Aged Out No longer eligible based on patient's age to complete this topic Varicella Vaccines Aged Out No longer eligible based on patient's age to complete this topic Procedures Procedure Name Priority Date/Time Associated Diagnosis Comments EXTERNAL CT REPORT 10/28/2024 EXTERNAL XRAY REPORT 10/28/2024 EXTERNAL XRAY REPORT 10/28/2024 XR CERVICAL SPINE 4-5 VIEWS Routine 09/23/2024 1:06 PM EDT Cervical spondylosis with radiculopathy EXTERNAL MRI REPORT 09/09/2024 US PELVIS NON OB COMPLETE W TRANSVAGINAL Routine 09/03/2024 5:31 PM EDT Pelvic pressure in female History of uterine fibroid CULTURE URINE Routine 09/02/2024 9:31 AM EDT Female stress incontinence POC URINE AUTO W/O MICRO Routine 09/02/2024 9:29 AM EDT Pelvic pressure in female MG MAMMO DIGITAL SCREENING W JOHNATHAN BILAT Routine 07/25/2024 3:29 PM EDT Encounter for screening mammogram for breast cancer LIPID PANEL Routine 11/09/2023 HM DEPRESSION SCREENING Routine 08/28/2023 HM COLONOSCOPY Routine 10/27/2022 HM HPV Routine 01/18/2022 HM HEPATITIS C SCREENING Routine 03/09/2019 from Last 3 Months or Most Recently Relevant to Health Maintenance Results * External Xray Report (10/28/2024) Only the most recent of2 resultswithin the time period is included. Anatomical Region Laterality Modality Radiographic Maricruz ging us Provider [facility] XR PROCEDURES Final Result * External CT Report (10/28/2024) Anatomical Region Laterality Modality Computed Tomogra phy us Provider [facility] CT PROCEDURES Final Result * XR Cervical Spine 4-5 Views (09/23/2024 [...] extension. Range of motion is limited. Code 23704 -------- FINAL REPORT -------- Dictated By: Leandro Black Dictated Date: 09/24/2024 08:59 ET Assigned Physician: Leandro Black Reviewed and Electronically Signed By: Leandro Black Signed Date: 09/24/2024 09:01 ET Workstation ID: [id number] Transcribed By: Self Edit Transcribed Date: 09/24/2024 [...] extension. Range of motion is limited. Code 32991 -------- FINAL REPORT -------- Dictated By: Leandro Black Dictated Date: 09/24/2024 08:59 ET Assigned Physician: Leandro Black Reviewed and Electronically Signed By: Leandro Black Signed Date: 09/24/2024 09:01 ET Workstation ID: [id number] Transcribed By: Self Edit Transcribed Date: 09/24/2024 08:59 ET Katherin Wray MD IMG XR PROCEDURES Final Result * External MRI Report (09/09/2024) Anatomical Region Laterality Modality Magnetic Resonan ce Provider [facility] MRI PROCEDURES Final Result * US Pelvis Non OB Complete w Transvaginal (09/03/2024 5:31 PM EDT) Anatomical Region Laterality Modality Body, Pelvis Ultrasound 09/03/2024 7:39 PM EDT Impressions 09/03/2024 7:42 PM EDT No uterine abnormality. Ovaries not visualized. POS [id number] -------- FINAL REPORT -------- Dictated By: Evelyn Weaver Dictated Date: 09/03/2024 19:39 ET Assigned Physician: Evelyn Weaver Reviewed and Electronically Signed By: Evelyn Weaver Signed Date: 09/03/2024 19:42 ET Workstation ID: [id number] Transcribed By: Self Edit Transcribed Date: 09/03/2024 19:39 ET Narrative 09/03/2024 7:42 PM EDT PELVIC ULTRASOUND HISTORY: Pelvic pressure. Bloating. History of uterine fibroids. COMPARISON: 01/26/2022 FINDINGS: Both transabdominal and endovaginal pelvic ultrasound were performed. Uterus: 5.4 x 3.4 x 2.2 cm in size. No focal solid lesion. Endometrium: 0.3 cm in thickness which is within normal limits for postmenopausal state. No focal abnormality. Right ovary: Not visualized. Left ovary: Not visualized. Cul-de-sac: No free fluid. Procedure Note Evelyn Weaver MD - 09/03/2024 PELVIC ULTRASOUND HISTORY: Pelvic pressure. Bloating. History of uterine fibroids. COMPARISON: 01/26/2022 FINDINGS: Both transabdominal and endovaginal pelvic ultrasound were performed. Uterus: 5.4 x 3.4 x 2.2 cm in size. No focal solid lesion. Endometrium: 0.3 cm in thickness which is within normal limits forpostmenopausal state. No focal abnormality. Right ovary: Not visualized. Left ovary: Not visualized. Cul-de-sac: No free fluid. IMPRESSION: No uterine abnormality. Ovaries not visualized. POS [id number] -------- FINAL REPORT -------- Dictated By: Evelyn Weaver Dictated Date: 09/03/2024 19:39 ET Assigned Physician: Evelyn Weaver Reviewed and Electronically Signed By: Evelyn Weaver Signed Date: 09/03/2024 19:42 ET Workstation ID: [id number] Transcribed By: Self Edit Transcribed Date: 09/03/2024 19:39 ET us Frank Cano CNM IMG US PROCEDURES Final Resul t * Culture urine (09/02/2024 9:31 AM EDT) Culture, Urine No growth 09/03/2024 10:15 AM EDT [facility] Urine Urine specimen obtained by clean catch procedure / Unknown Non-blood Collection / Unknown 09/02/2024 9:31 AM EDT 09/02/2024 12:01 PM EDT Frank Cano [facility] MICROBIOLOGY - GENERAL OR DERABLES Final Result [facility] [address] [place] [address], * (ABNORMAL) POC Urine Auto W/O Micro (09/02/2024 9:29 AM EDT) Leukocytes UA POC Negative Negative Nitrite UA POC Negative Negative Urobilinogen UA POC Negative Negative Protein UA POC Negative Negative PH UA POC 6.5 5.0 - 9.0 Blood UA POC Positive(A) Negative, Trace Specific [place] UA POC 1.005 1.001 - 1.035 Ketones UA POC Negative Negative Bilirubin UA POC Negative Negative Glucose UA POC Normal Normal, Trace Urine Urine specimen obtained by clean catch procedure / Unknown 09/02/2024 9:29 AM EDT [facility] POINT OF CARE TEST ENTER/EDIT ORDERABLES Final Result * MG Mammo Digital Screening w Johnathan bilat (07/25/2024 3:29 PM EDT) Anatomical Region Laterality Modality Breast Bilateral Mammography 07/26/2024 11:5 9 AM EDT Impressions 07/26/2024 12:02 PM EDT No mammographic evidence of malignancy. BI-RADS CATEGORY: 1 - NEGATIVE RECOMMENDATION: Screening bilateral mammogram is recommended in 1 year. Mammo Location: [facility], [address] [place] [address], [id number], . -------- FINAL REPORT -------- Dictated By: Dianna Lozano Dictated Date: 07/26/2024 11:59 ET Assigned Physician: Dianna Lozano Reviewed and Electronically Signed By: Dianna Lozano Signed Date: 07/26/2024 12:02 ET Workstation ID: [id number] Transcribed By: Self Edit Transcribed Date: 07/26/2024 11:59 ET Narrative 07/26/2024 12:02 PM EDT CLINICAL: 58 years old, Female, routine annual exam. COMPARISON: Prior mammograms, latest from 07/12/2023. TECHNIQUE: Bilateral MLO and CC views were obtained digitally with 2 D C views and 3-D mammogram (digital breast tomosynthesis). Computer-aided detection was utilized in evaluation of this exam (CAD). FINDINGS: There is no evidence of suspicious mass or architectural distortion. No worrisome calcifications are evident. There has been no significant change from prior exam(s). BREAST DENSITY: C - The breasts are heterogeneously dense which may obscure small masses. Procedure Note Dianna Lozano MD - 07/26/2024 CLINICAL: 58 years old, Female, routine annual exam. COMPARISON: Prior mammograms, latest from 07/12/2023. TECHNIQUE: Bilateral MLO and CC views were obtained digitally with 2 D Cviews and 3-D mammogram (digital breast tomosynthesis). Computer-aideddetection was utilized in evaluation of this exam (CAD). FINDINGS: There is no evidence of suspicious mass or architectural distortion. Noworrisome calcifications are evident. There has been no significantchange from prior exam(s). BREAST DENSITY: C - The breasts are heterogeneously dense which mayobscure small masses. IMPRESSION: No mammographic evidence of malignancy. BI-RADS CATEGORY: 1 - NEGATIVE RECOMMENDATION: Screening bilateral mammogram is recommended in 1 year. Mammo Location: [facility], [address] [place] [address], [phone], . -------- FINAL REPORT -------- Dictated By: Dianna Lozano Dictated Date: 07/26/2024 11:59 ET Assigned Physician: Dianna Lozano Reviewed and Electronically Signed By: Dianna Lozano Signed Date: 07/26/2024 12:02 ET Workstation ID: [id number] Transcribed By: Self Edit Transcribed Date: 07/26/2024 11:59 ET us Waylon Morataya MD IMG BI PROCEDURES Final R esult * (ABNORMAL) Lipid panel (11/09/2023) [facility] LDL/HDL Ratio 3 0 - 4 Triglycerides 182(A) 0 - 150 mg/dL Cholesterol 215(A) 0 - 200 mg/dL HDL 79 >=40 mg/dL LDL Cholesterol 100 0 - 100 mg/dL Blood Venous blood specimen / Unknown Result [facility] Provider LAB BLOOD ORDERABLES Jadyn l Result * Depression Screening (08/28/2023) [facility] Depression Screening abstracted [facility] Provider HEALTH MAINTENANCE Final Result * Colonoscopy (10/27/2022) [facility] Colonoscopy no interpretation , abstracted Anatomical Region Laterality Modality Other Result [facility] Provider HEALTH MAINTENANCE Final Result * Cervical Cancer Screening: HPV (01/18/2022) [facility] Cervical Cancer Screening: HPV negative, abstracted [facility] Provider HEALTH MAINTENANCE Final Result * Hepatitis C Screening (03/09/2019) [facility] Hepatitis C Screening abstracted [facility] Provider HEALTH MAINTENANCE Final Result from Last 3 Months or Most Recently Relevant to Health Maintenance Insurance [facility] [employer] Care Teams Gore Stitcher Relationship Specialty Start Date End Date Waylon Morataya MD [address] [place] [address] PCP - General Internal Medicine 01/23/19
--- OUTSIDE RECORDS SUMMARY | 2024-10-28 18:12 | XMS_ITS ---
Author Organization 175 [facility] Address [address] [place] [address] Phone Care Team Providers Care Call Center Analyst Name Role Phone Waylon Morataya MD Primary Care Provider [phone] [facility] - Food Insecurity Status:Ongoing (Active) Start date:03/12/2024 Enrollment date:03/12/2024 Enrollment reason:Identified as high-risk Related social drivers of health:Food Risk Related program episode:Community Health Worker Program (Closed) Overview Community Health Worker Program - Food Insecurity Service Episode Case Team Name Relationship Phone Ellis Mcintyre Community Health Worker(Respons ible Staff) Continued Care and Services Coordination
== END 2024-10-28 16:39 | disposition home or self-care (01) ==
LOC: HO.ED 14:57
PROVIDERS: Emergency Provider Emergency Medicine; PCP Internal Medicine
DX: S06.0X0A Concussion without loss of consciousness, initial encounter (principal); W18.39XA Other fall on same level, initial encounter; Y93.89 Activity, other specified; Y92.9 Unspecified place or not applicable; Y99.9 Unspecified external cause status; R51.9 Headache, unspecified; M54.50 Low back pain, unspecified
CPT/HCPCS: 70450; 72100; 72220; 99281; 99284

== ENCOUNTER → 2024-10-28 12:04 | Outpatient (BNV) | payer OTHER, SELFPAY | PROVIDERS: PCP Internal Medicine; Visit Provider Radiology Diagnostic Radiology | DX: S09.90XA Unspecified injury of head, initial encounter (principal); M51.360 Other intervertebral disc degeneration, lumbar region with discogenic back pain only; M53.3 Sacrococcygeal disorders, not elsewhere classified | CPT/HCPCS: 70450; 72100; 72220 ==

== ENCOUNTER 2024-11-27 09:16 | Outpatient (REF) | payer OTHER, SELFPAY ==
[2024-11-27 11:53] LABS: Alanine Aminotransferase 38 U/L (0-31); Albumin Level 4.5 g/dL (3.5-5.0); Alkaline Phosphatase 73 U/L (39-117); Anion Gap 10 (12-20); Aspartate Amino Transferase 32 U/L (5-31); Blood Urea Nitrogen 12 mg/dL (9-16); Calcium 9.6 mg/dL (8.4-10.2); Carbon Dioxide 27 mmol/L (22-29); Chloride 109 mmol/L (96-108); Estimated Glomerular Filt Rate > 60; Potassium 4.3 mmol/L (3.3-5.1); Sodium 142 mmol/L (135-145); Thyroid Stimulating Hormone 1.30 uIU/mL (0.32-4.0); Total Protein 7.1 g/dL (6.5-8.0)
[2024-11-27 11:58] LABS: HIV Num 1 0.05 S/CO (0.00-0.99); Syphilis Screen Nonreactive (Nonreactive)
[2024-11-28 05:58] LABS: Lyme Abs Screen <0.90 index
[2024-11-28 21:13] LABS: Proteinase 3 PR3 Antibodies <1.0 AI
[2024-12-04 11:48] LABS: Anti Nuclear Antibody Screen NEGATIVE (NEGATIVE)
== END 2024-11-27 09:17 | disposition home or self-care (01) ==
LOC: HO.LAB 09:16
PROVIDERS: PCP Internal Medicine; Visit Provider Psychiatry & Neurology Neurology
DX: Z01.84 Encounter for antibody response examination (principal); Z11.4 Encounter for screening for human immunodeficiency virus [HIV]; M79.7 Fibromyalgia
CPT/HCPCS: 36415; 80048; 80076; 82550; 82784; 84443; 85652; 86021; 86038; 86039; 86141; 86334; 86617; 86618; 86753; 86780; 87389

== ENCOUNTER 2024-12-24 11:16 | Outpatient (AMB) | payer MEDICAID, SELFPAY ==
--- NOTE | 2024-12-24 11:29 | A.OFFVIS_ITS ---
Vital Signs 12/24/24 11:37 Height 5 ft 4 in Weight 178 lb BMI 30.6 BP 138/58 L Blood Pressure Location Rt brachial Position Sitting Respiration 16 Pulse 63 Pulse Source Pulse Oximeter Pulse Oximetry (%) 97 Oxygen Delivery Method Room Air Intake Visit Reasons: 3m Promotional Representative Required: No Allergies No Known Allergies Allergy (Verified 12/24/24 11:38) HPI Comments Details: Adrianna is a 59-year-old female patient with a past medical history of fibromyalgia, cervical spondyloarthritis with ACDF [place] [address] Sen who has been following in the clinic for a nonspecific pain syndrome somewhat suggestive of fibromyalgia or somatization. She also has noted numbness and tingling to her hands, arms, and legs and tops of her feet. She also experiences stiffness in her neck. Follow up cervical spine imaging and EMG has been unrevealing in terms of exp laining her symptoms. She has been treated with duloxetine 30 mg twice daily for symptomatic management and gabapentin 300 mg 3 times daily which has been helpful. She tells me today that her balance continues to be difficult and in October she fell backwards hitting her head on the kitchen wall. She still has somewhat of a residual headache. She did go to the ER for evaluation and was told that she had a concussion. She continues to use her infusion collar but is told that 1 of her areas in her cervical spine has not fused properly. She was recommended to see [place] [facility] however they did not recommend intervention with a steroid as this would hinder the potential for fusion. She will be seeing her neurosurgeon again soon. She continues to have paresthesias to her fingertips and feet. She also has some neck stiffness and generalized pain to her neck and upper back area. Her headaches has been bifrontal associated with sensitivity to sound but she denies any light sensitivity, nausea, or dizziness. [facility] Medical History Peroneal neuropathy Somatization disorder Paresthesia of skin Fibromyalgia Gait disorder Cervical spondylarthritis Migraine equivalent syndrome Migraine without aura Numbness and tingling Muscle spasm Arm pain IBS (irritable bowel syndrome) Eczema Vertigo Frequent headaches Hyperlipidemia GERD (gastroesophageal reflux disease) Bunion Depression with anxiety Asthma Allergic rhinitis Endometriosis Cervical spondylosis with radiculopathy Family History Brother History of back surgery Brother History of brain shunt Social History Alcohol intake: current Patient Tobacco Use Status: Never used Tobacco Review of Systems Const All systems reviewed & are unremarkable except as noted in HPI and below Physical Exam Vital Signs: Last Vital Signs Pulse 63 12/24/24 11:37 Resp 16 12/24/24 11:37 BP 138/58 L 12/24/24 11:37 Pulse Ox 97 12/24/24 11:37 Oxygen Delivery Method Room Air 12/24/24 11:37 BMI result Body Mass Index 30.6 Const General: cooperative, healthy appearing, comfortable and no acute distress Nutritional Appearance: well nourished Orientation/consciousness: patient oriented x3 Limitations: no limitations HEENT Head: Yes normal to inspection and Yes normocephalic Eyes General: appearance normal, both eyes and all related structures Visual Dias: normal visual dias by confrontation Alignment and Position: alignment normal Periorbital: periorbital findings normal Eyelids: Yes eyelids normal Conjunctivae: conjunctivae normal Sclerae: sclerae normal Neuro General: patient oriented x3 and deep tendon reflexes 2+ bilaterally Cranial nerves: Yes CN's II-XII intact bilaterally and Yes Facial sensation intact/muscles of mastication intact Cognition (Neuro): normal cognition Gait exam (Neuro): Normal gait present Motor exam (neuro): 5/5 motor strength present throughout and no tremor noted Sensory Exam: double simultaneous stimulation for sensation normal Romberg Test: Negative Pupils: Normal pupillary reactivity/response: bilateral Psych Appearance: grossly normal Mental Status: mental status grossly normal Speech and movement: Clear speech present and Slowed speech present (Psych) Affect: Blunted affect present Attitude: cooperative Thought process: Normal thought process present Thought content: Normal thought content present Insight: Fair insight present (Psych) Judgement: Fair judgement present (Psych) Assessment & Plan Assessment & Plan (1) Paresthesias: Code(s): R20.2 - Paresthesia of skin Category: Medical (2) Imbalance: Code(s): R26.89 - Other abnormalities of gait and mobility Category: Medical Plan Adrianna is a 59-year-old female patient with a past medical history of fibromyalgia, cervical spondyloarthritis with ACDF [place] [address] Sen who has been following in the clinic for a nonspecific pain syndrome somewhat suggestive of fibromyalgia or somatization. Symptoms are relatively nonspecific though she did have elevated CRP level which I will repeat and also include a Sjogren antibody as this can cause paresthesias. I will start amitriptyline 10 mg at bedtime for both her paresthesias as well as headaches. This can be taken in conjunction with the gabapentin which can pr oduce synergistic effects. She is also still on fluoxetine though interaction potential is low at prescribed dosing. She can hold off on cyclobenzaprine for now while she is using the amitriptyline. If the amitriptyline works better, we can discontinue the cyclobenzaprine formally and move to use of the amitriptyline instead. -LAbs: repeat CRP, sjogrens antibodies -Amitriptyline 10mg -Reduce the use of OTC medications -6 week follow-up Orders: Orders Vitamin B12 12/24/24 R20.2 - Paresthesia of skin, R26.89 - Other abnormalities of gait and mobility Sjogren's Antibodies 12/24/24 R20.2 - Paresthesia of skin, R26.89 - Other abnormalities of gait and mobility CRP High Sensitivity 12/24/24 R20.2 - Paresthesia of skin, R26.89 - Other abnormalities of gait and mobility Medications: New amitriptyline 10 mg PO BEDTIME 30 tabs 3RF 30 days Coding Level of Care Code Est Pt Level 4 (95941) Diagnoses Paresthesias R20.2 Imbalance R26.89
[2024-12-24 11:37] VITALS: BP 138/58; PULSE 63; RESP 16; O2SAT 97; BMI 30.6
--- OUTSIDE RECORDS SUMMARY | 2024-12-24 13:49 | XMS_ITS | Clinical Summary ---
Author Organization [facility] Address [address] [place] [address] Care Team Providers Care Biomedical Engineering Aide Name Role Phone Waylon Morataya MD Primary Care Provider [phone] Social History Tobacco Use Types Packs/Day Years [...] age to complete this topic Care Teams Biomedical Engineering Aide Relationship Specialty Start Date End Date Waylon Morataya MD [address] [place] [address] PCP - General Internal Medicine 05/28/20
== END 2024-12-24 12:15 | disposition home or self-care (01) ==
LOC: HO.HSM 11:16
PROVIDERS: PCP Internal Medicine; Visit Provider Nurse Practitioner
DX: R20.2 Paresthesia of skin (principal); R26.89 Other abnormalities of gait and mobility
CPT/HCPCS: 99214

== ENCOUNTER → 2024-12-24 11:16 | Outpatient (BNVA) | payer MEDICAID, SELFPAY | PROVIDERS: PCP Internal Medicine; Visit Provider Nurse Practitioner | DX: R20.2 Paresthesia of skin (principal); R26.89 Other abnormalities of gait and mobility | CPT/HCPCS: 99212 ==

== ENCOUNTER 2024-12-26 10:14 | Outpatient (REF) | payer MEDICAID, SELFPAY ==
--- OUTSIDE RECORDS SUMMARY | 2024-12-26 11:58 | XMS_ITS | Clinical Summary ---
Author Organization [facility] Address [address] [place] [address] Care Team Providers Care Cellophane Bath Mixer Name Role Phone Waylon Morataya MD Primary Care Provider [phone] Social History Tobacco Use Types Packs/Day Years [...] age to complete this topic Care Teams Cellophane Bath Mixer Relationship Specialty Start Date End Date Waylon Morataya MD [address] [place] [address] PCP - General Internal Medicine 05/28/20
--- OUTSIDE RECORDS SUMMARY | 2024-12-26 11:58 | XMS_ITS | Clinical Summary ---
Author Organization [facility] Address [address] [place] [address] Phone Care Team Providers Care Hogshead Stripper Name Role Phone Steph Barakat MD Primary Care Provider [phone] Allergies No known active allergies Medications omeprazole (PriLOSEC) [address] capsule Take 1 capsule (40 mg total) by mouth 1 (one) time each day. 4 Active gabapentin (NEURONTIN) 300 mg capsule Take 1 capsule (300 mg total) by mouth 1 (one) time each day. 4 Active reservoir inhalation (INSPIREASE) device 1 Each by Does not apply route as needed for Other (To use with inhalers). 3 Active FLUoxetine (PROzac) 20 mg capsule 2 capsules daily. 1 Active QUEtiapine (SEROquel) 25 mg tablet 1 tablet BID 1 Active clonazePAM (KlonoPIN) 0.5 mg tablet Take 1 Tab by mouth 2 times daily. 1 Active multivit-min/iro n/folic acid/K (ADULTS MULTIVITAMIN ORAL) Take 1 Tab by mouth daily. Active meloxicam (MOBIC) 15 mg tablet 5 Active Caltrate with Vitamin D3 600 mg-20 [...] 10 DAYS. 30 tablet 5 5 Active [facility] inhaler USE WITH INHALER DIRECTED 5 Active albuterol HFA (PROAIR HFA ; PROVENTIL HFA ; VENTOLIN HFA) 90 mcg/actuation inhalerIndicatio ns:Mild intermittent asthma, unspecified whether complicated Inhale 2 puffs by mouth every 4 (four) hours if needed for wheezing. 6.7 g 1 5 05/14/19 26 Active cyclobenzaprine (FLEXERIL) 5 mg tabletIndication s:Nonintractable headache, unspecified chronicity pattern, unspecified headache type Take 1 tablet (5 mg total) by mouth 3 (three) times a day if needed for muscle spasms. 30 tablet 1 5 Active pravastatin (PRAVACHOL) 40 mg tablet TAKE 1 TABLET BY MOUTH EVERY DAY 90 tablet 1 5 Active lactulose (Enulose) solution Take 30 mL (20 g total) by mouth 4 (four) times a day. 3600 mL 2 5 11/29/19 25 Active Problems Problem Noted Date Diagnosed Date [...] Encounters Date Type Department Care Team Description 11/14/2024 11:15 AM EDT Office Visit Internal Medicine - [address] [phone] Abhi Loza NP Mild intermittent asthma, unspecified whether complicated (Primary Dx); Nonintractable headache, unspecified chronicity pattern, unspecified headache type; Hyperlipidemia, unspecified hyperlipidemia type 11/14/2024 Telephone Internal Medicine - [address] [phone] Steph Barakat MD 11/14/2024 Telephone Internal Medicine - [address] [phone] Abhi Loza NP 10/30/2024 2:00 PM EDT Office Visit Internal Medicine - [address] [phone] Roxana Huerta NP Injury of head, subsequent encounter (Primary Dx); Acute intractable headache, unspecified headache type; Nausea and vomiting, unspecified vomiting type; Dizziness; Concussion without loss of consciousness, subsequent encounter 10/30/2024 10:30 AM EDT - 10/30/2024 11:59 PM EDT Hospital Encounter CT Scan - [address] [phone] Injury of head, subsequent encounter; Acute intractable headache, unspecified headache type; Nausea and vomiting, unspecified vomiting type; Dizziness Discharge Disposition: Home or Self Care 10/30/2024 [facility] [address] [place] [address] Waylon Morataya MD from Last 3 Months Immunizations Immunization Administration Dates Next Due Influenza Quadravalent, MDCK [...] OTHER ----; COMMENT: Laproscopic surgery APPENDECTOMY PROCEDURE: AR APPENDECTOMY COLONOSCOPY PROCEDURE: HISTORICAL COLONOSCOPY CERVICAL BIOPSY W/ LOOP ELECTRODE EXCISION PROCEDURE: AR CONIZATION CERVIX W/WO D&C RPR ELTRD EXC; [...] ed Within the last 3 months, ho dolores many times did you visit the emergency [...] care for your loved ones. For example, exceptional children teacher or elderly care for an older adult? [...] Date Recorded What is your living situation? Unrecognized valu e 03/12/2024 Comments No Sex and Gender Information Value Date Recorded Sex Assigned at Not on file Legal Sex Female 11:59 AM EST Gender Identity Not on file Sexual Orientation Not on file Obstetrics History Para Term AB IAB SAB Ectopic Multiple Livin g Live Births 0 0 0 Last Filed Vital Signs Vital Sign Reading Time Taken Comments Blood Pressure 117/85 11/14/2024 11:22 AM EDT Pulse 74 11/14/2024 11:22 AM EDT Temperature 36.3 C (97.3 F) 08/20/2024 1:23 PM EDT Respiratory Rate - - Oxygen Saturation 97% 06/21/2024 1:40 PM EDT room air Inhaled Oxygen Concentration - - Weight 79.8 kg (175 lb 14.4 oz) 025 11:22 AM EDT Height 162.6 cm (5' 4 ) 10/30/2024 1:38 PM EDT Body Mass Index 30.19 10/30/2024 1:38 PM EDT Plan of Treatment Upcoming Encounters Date Type Department Care Team (Late st Contact Info) Description 03/18/2025 11:15 AM EST Office Visit Internal Medicine - [address] [phone] Abhi Loza, MICHELA [address] [place] [address] [phone] Health Maintenance Due Date Last Done Comments RSV Immunization Adult Patients (1 - Risk 50-74 years 1-dose series) 12/07/2013 Pneumococcal Vaccine: 50+ Years (2 of 2 - PCV) 01/27/2017 01/28/2016 HIV Screening 01/29/2022 Medicare Annual Wellness Visit 01/29/2022 Depression Screening 02/21/2024 08/28/2023 COVID-19 Vaccine ( season) 2024 09/12/2021, 01/29/2021, 06/28/2020, Additional history [...] Name Priority Date/Time Associated Diagnosis Comments EXTERNAL CLINICAL LAB 12/05/2024 EXTERNAL CLINICAL LAB 12/03/2024 EXTERNAL CLINICAL LAB 11/29/2024 EXTERNAL CLINICAL LAB 11/28/2024 CT HEAD WO CONTRAST STAT 10/30/2024 3 :08 PM EDT Injury of head, subsequent encounter Acute intractable headache, unspecified headache type Nausea and vomiting, unspecified vomiting type Dizziness EXTERNAL CT REPORT 10/28/2024 EXTERNAL XRAY REPORT 10/28/2024 EXTERNAL XRAY REPORT 10/28/2024 MG MAMMO DIGITAL SCREENING W JOHNATHAN BILAT Routine 07/25/2024 3:29 PM EDT Encounter for screening mammogram for breast cancer LIPID PANEL Routine 11/09/2023 DEPRESSION SCREENING Routine 08/28/2023 COLONOSCOPY Routine 10/27/2022 HPV Routine 01/18/2022 HEPATITIS C SCREENING Routine 03/09/2019 from Last 3 Months or Most Recently Relevant to Health Maintenance Results * External clinical lab (12/05/2024) Only the most recent of4 resultswithin the time period is included. us Provider [facility] LAB BLOOD ORDERABLES Fin al Result * CT Head wo Contrast (10/30/2024 3:08 PM EDT) Anatomical Region Laterality Modality Head and Neck Computed Tomogra phy 10/30/2024 3:18 PM EDT Impressions 10/30/2024 3:23 PM EDT No acute intracranial pathology. -------- FINAL REPORT -------- Dictated By: Bianca Colin Dictated Date: 10/30/2024 15:18 ET Assigned Physician: Bianca Colin Reviewed and Electronically Signed By: Bianca Colin Signed Date: 10/30/2024 15:23 ET Workstation ID: [id number] Transcribed By: Self Edit Transcribed Date: 10/30/2024 15:18 ET Narrative 10/30/2024 3:[address] HEAD WO CONTRAST HISTORY: Headache. Intracranial hemorrhage suspected. Status post fall with head injury. TECHNIQUE: Contiguous axial images were obtained from the skull base to the vertex without contrast. PRIOR STUDIES: CT head 03/27/2020. FINDINGS: There is no acute intracranial hemorrhage. The ramirez/white matter differentiation is preserved. The ventricles and sulci are normal in size and symmetric. The basal cisterns are patent. There is no mass effect or midline shift. There are no intra or extra-axial fluid collections identified. No skull fractures are seen. Hyperostosis frontalis interna, normal variant, is again noted. The paranasal sinuses and mastoid air cells are clear. Pituitary gland is grossly unremarkable. Infundibulum is midline. There is no abnormality at the foramen magnum. Procedure Note Bianca Colin MD - 10/30/2024 CT HEAD WO CONTRAST HISTORY: Headache. Intracranial hemorrhage suspected. Status post fallwith head injury. TECHNIQUE: Contiguous axial images were obtained from the skull base tothe vertex without contrast. PRIOR STUDIES: CT head 03/27/2020. FINDINGS: There is no acute intracranial hemorrhage. The ramirez/white matterdifferentiation is preserved. The ventricles and sulci are normal in sizeand symmetric. The basal cisterns are patent. There is no mass effect ormidline shift. There are no intra or extra-axial fluid collectionsidentified. No skull fractures are seen. Hyperostosis frontalis interna, normalvariant, is again noted. The paranasal sinuses and mastoid air cells are clear. Pituitary gland is grossly unremarkable. Infundibulum is midline. There is no abnormality at the foramen magnum. IMPRESSION: No acute intracranial pathology. -------- FINAL REPORT -------- Dictated By: Bianca Colin Dictated Date: 10/30/2024 15:18 ET Assigned Physician: Bianca Colin Reviewed and Electronically Signed By: Bianca Colin Signed Date: 10/30/2024 15:23 ET Workstation ID: [id number] Transcribed By: Self Edit Transcribed Date: 10/30/2024 15:18 ET Roxana Huerta NP IMG CT PROCEDURES Final Result * External Xray Report (10/28/2024) Only the most recent of2 resultswithin the time period is included. Anatomical Region Laterality Modality Radiographic Maricruz ging Provider [facility] IMG XR PROCEDURES Final Result * External CT Report (10/28/2024) Anatomical Region Laterality Modality Computed Tomogra phy us Provider [facility] IMG CT PROCEDURES Final Result * MG Mammo Digital Screening w Johnathan bilat (07/25/2024 3:29 PM EDT) Anatomical Region Laterality Modality Breast Bilateral Mammography 07/26/2024 11:5 9 AM EDT Impressions 07/26/2024 12:02 PM EDT No mammographic evidence of malignancy. BI-RADS CATEGORY: 1 - NEGATIVE RECOMMENDATION: Screening bilateral mammogram is recommended in 1 year. Mammo Location: [facility], [address] [place] [address], [id number], . -------- FINAL REPORT -------- Dictated By: Dianna Lozano Dictated Date: 07/26/2024 11:59 ET Assigned Physician: Dianna Lozano Reviewed and Electronically Signed By: Dianna Lozano Signed Date: 07/26/2024 12:02 ET Workstation ID: [id number] Transcribed By: Self Edit Transcribed Date: 07/26/2024 [...] is recommended in 1 year. Mammo Location: [facility], [address] [place] [address], [id number], . -------- FINAL REPORT -------- Dictated By: Dianna Lozano Dictated Date: 07/26/2024 11:59 ET Assigned Physician: Dianna Lozano Reviewed and Electronically Signed By: Dianna Lozano Signed Date: 07/26/2024 12:02 ET Workstation ID: [id number] Transcribed By: Self Edit Transcribed Date: 07/26/2024 11:59 ET Waylon Morataya MD IMG BI PROCEDURES Final R esult * (ABNORMAL) Lipid panel (11/09/2023) [facility] LDL/HDL Ratio 3 0 - 4 Triglycerides 182(A) 0 - 150 mg/dL Cholesterol 215(A) 0 - 200 mg/dL HDL 79 >=40 mg/dL LDL Cholesterol 100 0 - 100 mg/dL Blood Venous blood specimen / Unknown Result [facility] Provider LAB BLOOD ORDERABLES Jadyn l Result * Depression Screening (08/28/2023) [facility] Depression Screening abstracted Result [facility] Provider HEALTH MAINTENANCE Final Result * Colonoscopy (10/27/2022) [facility] Colonoscopy no interpretation , abstracted Anatomical Region Laterality Modality Other Result [facility] Provider HEALTH MAINTENANCE Final Result * Cervical Cancer Screening: HPV (01/18/2022) [facility] Cervical Cancer Screening: HPV negative, abstracted Result [facility] Provider HEALTH MAINTENANCE Final Result * Hepatitis C Screening (03/09/2019) [facility] Hepatitis C Screening abstracted [facility] Provider HEALTH MAINTENANCE Final Result from Last 3 Months or Most Recently Relevant to Health Maintenance Insurance [facility] MEDICARE Care Teams Hogshead Stripper Relationship Specialty Start Date End Date Steph Barakat MD [address] [facility] [place] [address] PCP - General Internal Medicine 11/14/24
--- OUTSIDE RECORDS SUMMARY | 2024-12-26 11:58 | XMS_ITS ---
Author Organization [facility] Address [address] [place] [address] Phone Care Team Providers Care Director Of Financial Planning Name Role Phone Steph Barakat MD Primary Care Provider [phone] [facility] - Food Insecurity Status:Ongoing (Active) Start date:03/12/2024 Enrollment date:03/12/2024 Enrollment reason:Identified as high-risk Related social drivers of health:Food Risk Related program episode:Community Health Worker Program (Closed) Overview Community Health Worker Program - Food Insecurity Service Episode Case Team Name Relationship Phone Ellis Mcintyre(Responsible Staff) Community He alth Worker Continued Care and Services Coordination
[2024-12-26 12:38] LABS: Vitamin B12 645 pg/mL (200-900)
[2024-12-27 17:44] LABS: Antibody to SS-A Antigen <1.0 NEG AI (<1.0 NEG); Antibody to SS-B Antigen <1.0 NEG AI (<1.0 NEG)
== END 2024-12-26 10:15 | disposition home or self-care (01) ==
LOC: HO.LAB 10:14
PROVIDERS: PCP Internal Medicine; Visit Provider Nurse Practitioner
DX: R26.89 Other abnormalities of gait and mobility (principal); R20.2 Paresthesia of skin
CPT/HCPCS: 36415; 82607; 86141; 86235

== ENCOUNTER 2025-02-04 11:54 | Outpatient (AMB) | payer MEDICAID, SELFPAY ==
--- NOTE | 2025-02-04 11:56 | MHC.OFFVIS ---
Vital Signs 02/04/25 12:00 Height 5 ft 4 in Weight 178 lb BMI 30.6 BP 120/70 Blood Pressure Location Rt brachial Position Sitting Respiration 16 Pulse 78 Pulse Source Pulse Oximeter Pulse Oximetry (%) 98 Oxygen Delivery Method Room Air Intake Visit Reasons: 6 weeks follow up Car Framer Required: No Allergies No Known Allergies Allergy (Verified 02/04/25 12:01) HPI Comments Details: Adrianna is a 59-year-old female patient with a past medical history of fibromyalgia, cervical spondyloarthritis with ACDF [place] [address] Sen who has been following in the clinic by Dr. Robles for a nonspecific pain syndrome somewhat suggestive of fibromyalgia or somatization according to documentation. She also has noted numbness and tingling to her hands, arms, and legs and tops of her feet. She also experiences stiffness in her neck. Prior documentation notes that follow up cervical spine imaging after her ACDF procedure was unrevealing however I have not been able to access these documents and we have looked in the [employer] system, [employer] system, [employer] system without any luck. Her most recent MRI C-spine imaging at [facility] was in 2021. EMG studies has been unrevealing in terms of causation for her paresthesias. She has tried several therapies including duloxetine, gabapentin, and cyclobenzaprine all of which has been marginally helpful if at all. At the time of her 1st follow up visit with me on 12/24/2024, she explain that balance remains the most difficult for and in October she fell which resulted in a head strike on the kitchen wall. She has had residual headache from this. She was evaluated in the emergency room and was told that she had a concussion. She continues to use her infusion collar but is told that 1 of her areas in her cervical spine has not fused properly. She was recommended to see [facility] however they did not recommend intervention with a steroid as this would hinder the potential for fusion. She continues to have paresthesias to her fingertips and feet. She also has some neck stiffness and generalized pain to her neck and upper back area. Her headaches has been bifrontal associated with sensitivity to sound but she denies any light sensitivity, nausea, or dizziness. At the time of our last visit, I ordered additional labs including a B12 levelnd Sjogren antibodies as they has not been performed in the past. I also repeated her CRP level which was slightly elevated at last visit. Her labs showed again a slightly elevated CRP at 4.6 but a normal ESR. Her other labs were normal. For symptomatic management, I started her on amitriptyline 10 mg nightly. She tells me today that the amitriptyline made her feel odd so she stopped taking it. She subsequently started back on the cyclobenzaprine 10mg which has been at least taking the edge off including both her headaches and paresthesias. She is hoping to get a 2nd opinion from another neurosurgeon which was encouraged by her primary care provider. [facility] Medical History Peroneal neuropathy Somatization disorder Paresthesia of skin Fibromyalgia Gait disorder Cervical spondylarthritis Migraine equivalent syndrome Migraine without aura Numbness and tingling Muscle spasm Arm pain IBS (irritable bowel syndrome) Eczema Vertigo Frequent headaches Hyperlipidemia GERD (gastroesophageal reflux disease) Bunion Depression with anxiety Asthma Allergic rhinitis Endometriosis Cervical spondylosis with radiculopathy Family History Brother History of back surgery Brother History of brain shunt Social History Alcohol intake: current Patient Tobacco Use Status: Never used Tobacco Review of Systems Const All systems reviewed & are unremarkable except as noted in HPI and below Physical Exam Vital Signs: Last Vital Signs Pulse 78 02/04/25 12:00 Resp 16 02/04/25 12:00 BP 120/70 02/04/25 12:00 Pulse Ox 98 02/04/25 12:00 Oxygen Delivery Method Room Air 02/04/25 12:00 BMI result Body Mass Index 30.6 Const General: cooperative, healthy appearing, comfortable and no acute distress Nutritional Appearance: well nourished Orientation/consciousness: patient oriented x3 Limitations: no limitations HEENT Head: Yes normal to inspection and Yes normocephalic Eyes General: appearance normal, both eyes and all related structures Visual Nielson: normal visual nielson by confrontation Alignment and Position: alignment normal Periorbital: periorbital findings normal Eyelids: Yes eyelids normal Conjunctivae: conjunctivae normal Sclerae: sclerae normal Neuro General: patient oriented x3 and deep tendon reflexes 2+ bilaterally Cranial nerves: Yes CN's II-XII intact bilaterally and Yes Facial sensation intact/muscles of mastication intact Cognition (Neuro): normal cognition Gait exam (Neuro): Normal gait present Motor exam (neuro): 5/5 motor strength present throughout and no tremor noted Sensory Exam: double simultaneous stimulation for sensation normal Romberg Test: Negative Pupils: Normal pupillary reactivity/response: bilateral Psych Appearance: grossly normal Mental Status: mental status grossly normal Speech and movement: Clear speech present and Slowed speech present (Psych) Affect: Blunted affect present Attitude: cooperative Thought process: Normal thought process present Thought content: Normal thought content present Insight: Fair insight present (Psych) Judgement: Fair judgement present (Psych) Assessment & Plan Assessment & Plan (1) Imbalance: Code(s): R26.89 - Other abnormalities of gait and mobility Category: Medical (2) Neck pain: Code(s): M54.2 - Cervicalgia Category: Medical Plan Adrianna is a 59-year-old female patient with a past medical history of fibromyalgia, cervical spondyloarthritis with ACDF [place] [address] Sen who has been following in the clinic by Dr. Robles for a nonspecific pain syndrome somewhat suggestive of fibromyalgia or somatization according to documentation. It seems however though her paresthesias and symptoms are unexplained but similar to the symptoms she had leading up to her Neurosurgery though now getting slightly worse. Her balance has also been affected. I can not find any recent cervical spine imaging and the patient is hoping for a 2nd opinion from a different neurosurgeon. I will obtain updated cervical spine imaging in preparation for this consult. I will follow up with the patient after the imaging and after review, we can decide on next steps which may include referral to another neurosurgeon. For now, we will continue her on cyclobenzaprine 10 mg nightly, gabapentin 300 mg 3 times daily, and her fluoxetine which combined seem to be of best help so far. -C-spine MRI -follow up after MRI Orders: Orders MR cervical spine wo con Today M54.2 - Cervicalgia, R26.89 - Other abnormalities of gait and mobility Medications: Discontinued amitriptyline Discontinued Reason: Doctor's Order 10 mg PO BEDTIME 30 days 30 tabs 3RF Coding Level of Care Code Est Pt Level 4 (12626) Diagnoses Imbalance R26.89 Neck pain M54.2
[2025-02-04 12:00] VITALS: BP 120/70; PULSE 78; RESP 16; O2SAT 98; BMI 30.6
--- OUTSIDE RECORDS SUMMARY | 2025-02-04 15:46 | XMS_ITS | Clinical Summary ---
Author Organization [address] [facility] Address [address] [place] [address] Phone Care Team Providers Care Army Senior Officer Name Role Phone Steph Barakat MD Primary Care Provider [phone] Allergies No known active allergies Medications omeprazole [...] by mouth 2 times daily. 1 Active multivit-min/iron /folic acid/K (ADULTS MULTIVITAMIN ORAL) Take 1 Tab [...] day. 5 Active ondansetron (ZOFRAN) 4 mg tabletIndications :Nausea Take 1 tablet (4 mg total) by mouth every 8 (eight) hours if needed for nausea or vomiting. 20 tablet 1 5 Active Gas Relief Extra Strength 125 mg chewable tabletIndications :Flatulence symptom CHEW 1 TABLET EVERY 6 HOURS IF NEEDED FOR FLATULENCE FOR UP TO 10 DAYS. 30 tablet [address] [facility] inhaler USE WITH INHALER DIRECTED 5 Active albuterol HFA (PROAIR HFA ; PROVENTIL HFA ; VENTOLIN HFA) 90 mcg/actuation inhalerIndication s:Mild intermittent asthma, unspecified whether complicated Inhale 2 puffs by mouth every 4 (four) hours if needed for wheezing. 6.7 g 1 5 05/14/19 26 Active cyclobenzaprine (FLEXERIL) 5 mg tabletIndications :Nonintractable headache, unspecified chronicity pattern, unspecified headache type Take 1 tablet (5 mg total) by mouth 3 (three) times a day if needed for muscle spasms. 30 tablet 1 5 Active pravastatin (PRAVACHOL) 40 mg tablet TAKE 1 TABLET BY MOUTH EVERY DAY 90 tablet 1 5 Active Active Problems Problem Noted Date [...] Encounters Date Type Department Care Team Description 01/02/2025 Results Follow-Up Internal Medicine - [address] [phone] Abhi Loza NP 12/27/2024 Results Follow-Up Internal Medicine - [address] [phone] Katherine Sanchez MA 12/27/2024 Results Follow-Up Internal Medicine - [address] [phone] Abhi Loza NP 11/14/2024 11:15 AM EDT Office Visit Internal Medicine - [address] [place] [address] Abhi Loza NP Mild intermittent asthma, unspecified whether complicated (Primary Dx); Nonintractable headache, unspecified chronicity pattern, unspecified headache type; Hyperlipidemia, unspecified hyperlipidemia type 11/14/2024 Telephone Internal Medicine - [address] [place] [address] Steph Barakat MD 11/14/2024 Telephone Internal Medicine - [address] [place], [place] [phone] Abhi Loza NP from Last 3 Months Immunizations Immunization Administration [...] OTHER ----; COMMENT: Laproscopic surgery APPENDECTOMY PROCEDURE: SD APPENDECTOMY COLONOSCOPY PROCEDURE: HISTORICAL COLONOSCOPY CERVICAL BIOPSY W/ LOOP ELECTRODE EXCISION PROCEDURE: SD CONIZATION CERVIX W/WO D&C RPR ELTRD EXC; [...] Record ed Within the last 3 months, jorge bernal many times did you visit the emergency [...] for your loved ones. For example, child center assistant or elderly care for an older adult? [...] AM EST Office Visit Internal Medicine - [facility] [address] [place], [place] [phone] Abhi Loza NP [address] [place] [address] Health Maintenance Due Date Last Done Comments Drug Screen 1965 Non-Opioid Controlled Substance Agreement 1965 RSV Immunization Adult Patients (1 - Risk [...] Screening 03/12/2025 03/12/2024 Breast Cancer Screening 07/25/2026 07/26/19 25, 07/12/2023, 07/12/2023, Additional history exists Cervical Cancer [...] Date/Time Associated Diagnosis Comments EXTERNAL CLINICAL LAB 12/30/2024 EXTERNAL CLINICAL LAB 12/27/2024 EXTERNAL CLINICAL LAB 12/05/2024 EXTERNAL CLINICAL LAB 12/03/2024 EXTERNAL CLINICAL LAB 11/29/2024 EXTERNAL CLINICAL LAB 11/28/2024 MG MAMMO DIGITAL SCREENING W JOHNATHAN BILAT Routine 07/25/2024 3:29 PM EDT Encounter for screening mammogram for breast cancer LIPID PANEL Routine 11/09/2023 DEPRESSION SCREENING Routine 08/28/2023 COLONOSCOPY Routine 10/27/2022 HPV Routine 01/18/2022 HEPATITIS C SCREENING Routine 03/09/2019 from Last 3 Months or Most Recently Relevant to Health Maintenance Results * External clinical lab (12/30/2024) Only the most recent of6 resultswithin the time period is included. us Provider [facility] LAB BLOOD ORDERABLES Fin al Result * MG Mammo Digital Screening w Johnathan bilat (07/25/2024 3:29 PM EDT) Anatomical Region Laterality Modality Breast Bilateral Mammography 07/26/2024 11:5 9 AM EDT Impressions 07/26/2024 12:02 PM EDT No mammographic evidence of malignancy. BI-RADS CATEGORY: 1 - NEGATIVE RECOMMENDATION: Screening bilateral mammogram is recommended in 1 year. Mammo Location: [facility], [address] [place] [address], [address], . -------- FINAL REPORT -------- Dictated By: Dianna Lozano Dictated Date: 07/26/2024 11:59 ET Assigned Physician: Dianna Lozano Reviewed and Electronically Signed By: Dianna Lozano Signed Date: 07/26/2024 12:02 ET Workstation ID: [id number] Transcribed By: Self Edit Transcribed Date: 07/26/2024 [...] is recommended in 1 year. Mammo Location: [facility], [address] [place] [address], [address], . -------- FINAL REPORT -------- Dictated By: Dianna Lozano Dictated Date: 07/26/2024 11:59 ET Assigned Physician: Dianna Lozano Reviewed and Electronically Signed By: Dianna Lozano Signed Date: 07/26/2024 12:02 ET Workstation ID: [id number] Transcribed By: Self Edit Transcribed Date: 07/26/2024 11:[address] [facility] Waylon Morataya MD IMG BI PROCEDURES Final R esult * (ABNORMAL) Lipid panel (11/09/2023) [facility] LDL/HDL Ratio 3 0 - 4 Triglycerides 182(A) 0 - 150 mg/dL Cholesterol 215(A) 0 - 200 mg/dL HDL 79 >=40 mg/dL LDL Cholesterol 100 0 - 100 mg/dL Blood Venous blood specimen / Unknown Result [facility] LAB BLOOD ORDERABLES Jadyn l Result * Depression Screening (08/28/2023) [facility] Depression Screening abstracted Result [facility] Provider HEALTH MAINTENANCE Final Result * Colonoscopy (10/27/2022) [facility] Colonoscopy no interpretation , abstracted Anatomical Region Laterality Modality Other Result [facility] Provider HEALTH MAINTENANCE Final Result * Cervical Cancer Screening: HPV (01/18/2022) [facility] Cervical Cancer Screening: HPV negative, abstracted Result [facility] Mary Ann [place] HEALTH MAINTENANCE Final Result * Hepatitis C Screening (03/09/2019) [facility] Hepatitis C Screening abstracted [facility] Mary Ann [place] HEALTH MAINTENANCE Final Result from Last 3 Months or Most Recently Relevant to Health Maintenance Insurance [facility] MEDICARE Care Teams Army Senior Officer Relationship Specialty Start Date End Date Steph Barakat MD [address] [facility] [place] [phone] PCP - General Internal Medicine 11/14/24
--- OUTSIDE RECORDS SUMMARY | 2025-02-04 15:46 | XMS_ITS ---
Author Organization 175 [facility] Address [address] [place] [address] Phone Care Team Providers Care Night Clerk Auditor Name Role Phone Steph Barakat MD Primary Care Provider [phone] [facility] - Food Insecurity Status:Ongoing (Active) Start date:03/12/2024 Enrollment date:03/12/2024 Enrollment reason:Identified as high-risk Related social drivers of health:Food Risk Related program episode:Community Health Worker Program (Closed) Overview Community Health Worker Program - Food Insecurity Service Episode Case Team Name Relationship Phone Ellis Mcintyre(Responsible Staff) Community He alth Worker Continued Care and Services Coordination
--- OUTSIDE RECORDS SUMMARY | 2025-02-04 15:46 | XMS_ITS | Encounter Summary ---
Author Organization [facility] Address [address] [place] [address] Care Team Providers Care Hospice Rn Name Role Phone Steph Barakat MD Primary Care Provider [phone] Encounter Details Date Type Department Care Team (Late st Contact Info) Description 12/27/2024 Results Follow-Up Internal Medicine - [facility] [address] [place], [place] [phone] Abhi Loza, MICHELA [address] [place] [address] Social History Tobacco Use Types Packs/Day Years [...] care for your loved ones. For example, early childhood lead teacher or elderly care for an older [...] on file documented as of this encounter Plan of Treatment Upcoming Encounters Date Type Department Care Team (Late st Contact Info) Description 03/18/2025 11:15 AM EST Office Visit Internal Medicine - [address] [phone] Abhi Loza NP [address] [place] [address] documented as of this encounter Visit Diagnoses Not on filedocumented in this encounter Care Teams Hospice Rn Relationship Specialty Start Date End Date Steph Barakat MD [address] [place] [address] PCP - General Internal Medicine 11/14/24 documented as of this encounter
--- OUTSIDE RECORDS SUMMARY | 2025-02-04 15:46 | XMS_ITS | Encounter Summary ---
Author Organization [facility] Address [address] [place] [address] Care Team Providers Care Economic Development Specialist Name Role Phone Steph Barakat MD Primary Care Provider [phone] Encounter Details Date Type Department Care Team (Late st Contact Info) Description 12/27/2024 Results Follow-Up Internal Medicine - [facility] [address] [facility] [place] [phone] Katherine Sanchez MA Social History Tobacco Use Types Packs/Day Years [...] for your loved ones. For example, child care centre manager or elderly care for an older adult? [...] AM EST [facility] [address] [place] [address] Abhi Loza NP [address] [place], [place] documented as of this encounter Visit Diagnoses Not on filedocumented in this encounter Care Teams Economic Development Specialist Relationship Specialty Start Date End Date Steph Barakat MD [address] [place] [address] PCP - General Internal Medicine 11/14/24 documented as of this encounter
--- OUTSIDE RECORDS SUMMARY | 2025-02-04 15:46 | XMS_ITS | Encounter Summary ---
Author Organization [facility] Address [address] [place] [address] Care Team Providers Care Blueprint Maker Name Role Phone Steph Barakat MD Primary Care Provider [phone] Encounter Details Date Type Department Care Team (Late st Contact Info) Description 01/02/2025 Results Follow-Up Internal Medicine - [facility] [address] [place], [place] [phone] Abhi Loza, MICHELA [address] [place] [address] Social History Tobacco Use Types Packs/Day Years [...] care for your loved ones. For example, vocational childcare teacher or elderly care for an older [...] AM EST Office Visit Internal Medicine - [address] [phone] Abhi Loza NP [address] [place] [address] documented as of this encounter Visit Diagnoses Not on filedocumented in this encounter Care Teams Blueprint Maker Relationship Specialty Start Date End Date Steph Barakat MD [address] [facility] [place] [address] PCP - General Internal Medicine 11/14/24 documented as of this encounter
--- OUTSIDE RECORDS SUMMARY | 2025-02-04 15:46 | XMS_ITS | Clinical Summary ---
Author Organization [facility] Prior to 07/20/24 Address [address] [place] [address] Care Team Providers Care Stem Sizer Name Role Phone Waylon Morataya MD Primary Care Provider [phone] Social History Tobacco Use Types Packs/Day Years [...] age to complete this topic Care Teams Stem Sizer Relationship Specialty Start Date End Date Waylon Morataya MD [address] [place] [address] PCP - General Internal Medicine 05/28/20
== END 2025-02-04 12:28 | disposition home or self-care (01) ==
LOC: HO.HSM 11:55
PROVIDERS: PCP Internal Medicine; Visit Provider Nurse Practitioner
DX: R26.89 Other abnormalities of gait and mobility (principal); M54.2 Cervicalgia
CPT/HCPCS: 99214

== ENCOUNTER → 2025-02-04 11:54 | Outpatient (BNVA) | payer MEDICAID, SELFPAY | PROVIDERS: PCP Internal Medicine; Visit Provider Nurse Practitioner | DX: M54.2 Cervicalgia (principal); R26.89 Other abnormalities of gait and mobility; Z87.39 Personal history of other diseases of the musculoskeletal system and connective tissue | CPT/HCPCS: 99212 ==